=== PATIENT | female | born 1960 | race Caucasian/White ===

== ENCOUNTER 2019-12-12 03:29 | Inpatient (IN) | payer OTHER ==
[~2019-12-12] VITALS: Ht 160 cm; Wt 71.7 kg
[2019-12-12] VITALS (12 sets, daily range): BP systolic 70–203; BP diastolic 36–111
--- NOTE | 2019-12-12 03:39 | Emergency Room Report ---
History of Present Illness General Chief Complaint: Chest Pain Source: Patient, EMS Present Illness HPI 59-year-old female presents after increased chest discomfort. She reports having increased pain to the left side of her chest radiating to her back. Reports having prior history of hypertension for which she takes clonidine. Denies any vomiting or diarrhea. Prior history of nerve damage as well as anxiety. Reports having some increased dizziness. Patient had been brought in by EMS and had been given aspirin prior to arrival. Allergies: Coded Allergies: CIPROFLOXACIN (Verified Allergy, Unknown, 12/12/19) KETOROLAC (Verified Allergy, Unknown, 12/12/19) NSAIDS (NON-STEROIDAL ANTI-INFLAMMA (Verified Allergy, Unknown, 12/12/19) Patient History Past Medical History: see triage record Reviewed Nursing Documentation: PMH: Agreed; PSxH: Agreed Nursing Documentation-PMH Past Medical History: No History, Except For Hx Hypertension: Yes Review of Systems All Other Systems: negative except mentioned in HPI Physical Exam Vital Signs Date Time Temp Pulse Resp B/P (MAP) Pulse Ox O2 Delivery O2 Flow Rate FiO2 12/12/19 03:27 98.1 69 18 203/92 (129) 99 Room Air Sp02 EP Interpretation: reviewed, normal General Appearance: normal inspection, well appearing, no apparent distress, alert, GCS 15 Head: atraumatic ENT: normal ENT inspection, hearing grossly normal, normal voice Neck: normal inspection, full range of motion, supple, no bony tend Respiratory: normal inspection, lungs clear, normal breath sounds, no respiratory distress, no retraction, no wheezing Cardiovascular #1: regular rate, rhythm, no edema Gastrointestinal: normal inspection, normal bowel sounds, non tender, soft, no guarding, no hernia Genitourinary: no CVA tenderness Musculoskeletal: normal inspection, back normal, normal range of motion Neurologic: alert, motor strength/tone normal, office rep III-XII nml as tested, responsive, speech normal, normal inspection Psychiatric: normal inspection, judgement/insight normal, mood/affect normal Medical Decision Making Diagnostic Impression: Primary Impression: Uncontrolled hypertension Additional Impression: Chest pain ER Course Patient presented for chest pain and uncontrolled hypertension. Differential diagnosis include was not limited to medication withdrawal, aortic dissection, pulmonary embolism, myocardial infarction among others. Because of complexity of patient's case laboratory tests and imaging studies were ordered. EKG interpreted by me showed normal sinus rhythm without acute ST or T wave changes. Patient was noted to be initially markedly hypertensive. She was given clonidine. Patient was noted to have some agitation and was given some Ativan. She appears to be having some history of chronic low back pain for which he normally takes gabapentin but had been out of this medication. Dr. Dariusz Knox was contacted for inpatient management due to panel physician. Labs Test 12/12/19 04:00 12/12/19 06:00 12/12/19 18:00 White Blood Count 6.7 K/UL (4.8-10.8) Red Blood Count 5.57 M/UL (4.20-5.40) Hemoglobin 17.2 G/DL (12.0-16.0) Hematocrit 50.7 % (37.0-47.0) Mean Corpuscular Volume 91 FL (80-99) Mean Corpuscular Hemoglobin 30.9 PG (27.0-31.0) Mean Corpuscular Hemoglobin Concent 33.9 G/DL (32.0-36.0) Red Cell Distribution Width 14.3 % (11.6-14.8) Platelet Count 162 K/UL (150-450) Mean Platelet Volume 9.1 FL (6.5-10.1) Neutrophils (%) (Auto) 67.4 % (45.0-75.0) Lymphocytes (%) (Auto) 27.4 % (20.0-45.0) Monocytes (%) (Auto) 3.6 % (1.0-10.0) Eosinophils (%) (Auto) 0.6 % (0.0-3.0) Basophils (%) (Auto) 0.9 % (0.0-2.0) D-Dimer 0.40 mg/L FEU (0.00-0.49) Sodium Level 141 MMOL/L (136-145) Potassium Level 3.8 MMOL/L (3.5-5.1) Chloride Level 102 MMOL/L (98-107) Carbon Dioxide Level 26 MMOL/L (21-32) Anion Gap 13 mmol/L (5-15) Blood Urea Nitrogen 12 mg/dL (7-18) Creatinine 0.7 MG/DL (0.55-1.30) Estimat Glomerular Filtration Rate > 60 mL/min (>60) Glucose Level 134 MG/DL (74-106) Calcium Level 9.3 MG/DL (8.5-10.1) Total Bilirubin 0.7 MG/DL (0.2-1.0) Aspartate Amino Transf (AST/SGOT) 16 U/L (15-37) Alanine Aminotransferase (ALT/SGPT) 18 U/L (12-78) Alkaline Phosphatase 57 U/L (46-116) Pro-B-Type Natriuretic Peptide 226 pg/mL (0-125) Total Protein 7.4 G/DL (6.4-8.2) Albumin 3.6 G/DL (3.4-5.0) Globulin 3.8 g/dL Albumin/Globulin Ratio 0.9 (1.0-2.7) Lipase 34 U/L (73-393) Serum Alcohol < 3 mg/dL Urine Color Pale yellow Urine Appearance Clear Urine pH 6.5 (4.5-8.0) Urine Specific [place] 1.015 (1.005-1.035) Urine Protein Negative (NEGATIVE) Urine Glucose (UA) Negative (NEGATIVE) Urine Ketones 3+ (NEGATIVE) Urine Blood Negative (NEGATIVE) Urine Nitrite Negative (NEGATIVE) Urine Bilirubin Negative (NEGATIVE) Urine Urobilinogen Normal MG/DL (0.0-1.0) Urine Leukocyte Esterase Negative (NEGATIVE) Urine Opiates Screen Negative (NEGATIVE) Urine Barbiturates Screen Negative (NEGATIVE) Phencyclidine (PCP) Screen Negative (NEGATIVE) Urine Amphetamines Screen Negative (NEGATIVE) Urine Benzodiazepines Screen Negative (NEGATIVE) Urine Cocaine Screen Negative (NEGATIVE) Urine Marijuana (THC) Screen Negative (NEGATIVE) Troponin I 0.000 ng/mL (0.000-0.056) EKG Diagnostic Results Rate: normal Rhythm: NSR ST Segments: no acute changes Last Vital Signs Date Time Temp Pulse Resp B/P (MAP) Pulse Ox O2 Delivery O2 Flow Rate FiO2 12/12/19 03:27 98.1 69 18 203/92 (129) 99 Room Air Status: improved Disposition: ADMITTED INPATIENT Condition: Stable Jared Cuevas MD Dec 12, 2019 03:39
[2019-12-12] MEDS: Nitroglycerin 2% oint pkt TOPIC ONE ×2 (03:44→03:45)
--- NOTE | 2019-12-12 03:45 | NUR ---
ED Nurse Note: Pt brought in by ambulance from home c/o 04/26 chest pain that started at 10pm and woke her up out of her sleep, pain radiating to back. Denies N/V, pt appears anxious and states " i dont feel right, Im scared". Pt placed on field talent qualification specialist, ERMD at bedside
[2019-12-12 03:56] LABS: BASOPHILS % (AUTO) 0.9 % (0.0-2.0); EOSINOPHILS % (AUTO) 0.6 % (0.0-3.0); HEMATOCRIT 50.7 % (37.0-47.0); HEMOGLOBIN 17.2 G/DL (12.0-16.0); LYMPHOCYTES % (AUTO) 27.4 % (20.0-45.0); MEAN CORPUSCULAR VOLUME 91 FL (80-99); MONOCYTES % (AUTO) 3.6 % (1.0-10.0); NEUTROPHILS % (AUTO) 67.4 % (45.0-75.0); PLATELET COUNT 162 K/UL (150-450); RED BLOOD COUNT 5.57 M/UL (4.20-5.40); RED CELL DISTRIBUTION WIDTH 14.3 % (11.6-14.8); WHITE BLOOD COUNT 6.7 K/UL (4.8-10.8)
[2019-12-12] MEDS ORDERED: CYMBALTA60 MG ORAL (04:09)
[2019-12-12] MEDS ORDERED: SUBOXONE 8 MG-1 EAC2 SL (04:09)
[2019-12-12] MEDS ORDERED: CLONIDINE 0.2M0.2 MG PO (04:09)
[2019-12-12] MEDS ORDERED: GABAPENTIN600 MG ORAL (04:09)
[2019-12-12 04:13] LABS: ANION GAP 13 mmol/L (5-15); BLOOD UREA NITROGEN 12 mg/dL (7-18); CALCIUM 9.3 MG/DL (8.5-10.1); CARBON DIOXIDE 26 MMOL/L (21-32); CHLORIDE 102 MMOL/L (98-107); CREATININE 0.7 MG/DL (0.55-1.30); POTASSIUM 3.8 MMOL/L (3.5-5.1); SODIUM 141 MMOL/L (136-145)
[2019-12-12 04:24] LABS: ALANINE AMINOTRANSFERASE 18 U/L (12-78); ALBUMIN 3.6 G/DL (3.4-5.0); ALBUMIN/GLOBULIN RATIO 0.9 (1.0-2.7); ALKALINE PHOSPHATASE 57 U/L (46-116); ASPARTATE AMINO TRANSFERASE 16 U/L (15-37); BILIRUBIN,TOTAL 0.7 MG/DL (0.2-1.0)
[2019-12-12] MEDS ORDERED: Meclizine 25mg tab ORAL ONE (05:15)
[2019-12-12] MEDS ORDERED: cloNIDine 0.2mg Tab ORAL ONE (05:45)
--- NOTE | 2019-12-12 05:45 | NUR ---
ED Nurse Note: Pt accidentally pulled out her IV, iv reinserted in L forarm.
[2019-12-12] MEDS ORDERED: Omnipaque 350 100ml vial INJ PRN (06:00)
[2019-12-12] MEDS ORDERED: LORazepam Inj 2mg/ml 1ml IV ONE (06:15)
[2019-12-12 06:34] LABS: APPEARANCE,URINE CLEAR; BILIRUBIN, URINE NEGATIVE (NEGATIVE); COLOR,URINE PALE YELLOW; GLUCOSE, URINE (UA) NEGATIVE (NEGATIVE); KETONES,URINE 3+ (NEGATIVE); LEUKOCYTE ESTERASE ,URINE NEGATIVE (NEGATIVE); NITRITE,URINE NEGATIVE (NEGATIVE); PH,URINE 6.5 (4.5-8.0); PROTEIN,URINE NEGATIVE (NEGATIVE); UROBILINOGEN,URINE NORMAL MG/DL (0.0-1.0)
[2019-12-12] MEDS ORDERED: Nitroglycerin Subl 0.4mg tab SL PRN (07:00)
[2019-12-12] MEDS ORDERED: Miralax 17gm pkt ORAL PRN (07:00)
[2019-12-12] MEDS ORDERED: Enalaprilat 2.5mg/2ml Inj IV PRN (07:00)
[2019-12-12] MEDS ORDERED: Albuterol/Ipratropium 3ml neb HHN PRN (07:00)
[2019-12-12] MEDS ORDERED: Labetalol 5mg/ml 20ml vial IV PRN (07:00)
[2019-12-12] MEDS ORDERED: dilTIAZem HCl 25mg/5ml Inj IV PRN (07:00)
--- NOTE | 2019-12-12 07:03 | NUR ---
HAND-OFF: Report given to ARNOL Plunkett.
--- NOTE | 2019-12-12 07:11 | NUR ---
ED Nurse Note: Report received from ARNOL Almaguer. Pt in stable condition, sleeping in bed. No signs of acute distress noted.
--- NOTE | 2019-12-12 08:42 | NUR ---
ED Nurse Note: Pt refused CT d/t pain. 4 mg morphine administered and pt agreed to go to CT. Pt refusing monitor at this time because she "wants to lay still here for awhile."
[2019-12-12] MEDS ORDERED: Morphine Sulfate 4mg/ml Inj (IV USE ONLY) IVP ONE (08:45)
--- NOTE | 2019-12-12 09:14 | NUR ---
ED Nurse Note: Pt refused CT scan for the second time
--- NOTE | 2019-12-12 11:03 | NUR ---
ED Nurse Note: report given to ARNOL Walton in 2E
--- NOTE | 2019-12-12 11:12 | Diagnostic Imaging Report ---
Indication: Chest pain Comparison: None A single view chest radiograph was obtained. Findings: Some prominence of the pulmonary interstitium noted nonspecific in nature. Heart size is normal. No pleural effusion appreciated. Bones are unremarkable. IMPRESSION: Some prominence of the pulmonary interstitial nonspecific. Acuity indeterminant.
--- NOTE | 2019-12-12 11:20 | NUR ---
ED Nurse Note: Pt transferred safely to 2E
--- NOTE | 2019-12-12 11:30 | NUR ---
NURSE NOTES: Received report from Derrick Flores RN. Patient alert and oriented x 4, able to make needs known, uncooperative. NSR on skip locator. On room air, respirations even and unlabored. Left AC 20g saline lock patent and asymptomatic. SKin intact. Bed locked in lowest position with side rails up x 2. All needs attended to. Call light within reach. Will continue to monitor and follow plan of care.
--- NOTE | 2019-12-12 11:41 | NUR ---
NURSE NOTES: Dr. Mackey made aware of patient c/o back pain 05/27, no pain meds available. Patient also requesting Ativan for anxiety. CTA chest refused in ED x 2. Also made aware of patient's BP 183/111 upon arrival to floor, will give PRN meds.
[2019-12-12] MEDS: Heparin 5000 units/ml inj SUBQ SCH ×2 (11:56→20:35)
[2019-12-12] MEDS ORDERED: HYDROcodone/Acetamin 5/325 tab ORAL PRN (13:00)
[2019-12-12] MEDS: cloNIDine 0.2mg Tab ORAL SCH ×2 (13:00→17:43)
[2019-12-12] MEDS: LORazepam Inj 2mg/ml 1ml IV PRN ×2 (13:10→18:02)
--- NOTE | 2019-12-12 16:45 | History and Physical Report ---
DATE OF ADMISSION: 12/12/2019 DATE AND TIME SEEN: 12/12/2019 at 2 p.m. CONSULTANTS: 1. Vidal Walden M.D. 2. Froylan Mackey M.D. CHIEF COMPLAINT: Chest pain, hypertension uncontrolled, shortness of breath. BRIEF HISTORY: This is a 59-year-old female, who presented with above-mentioned diagnoses, admitted to telemetry for further care. Currently, in bed, sleepy lethargic refusing to answer questions. REVIEW OF SYSTEMS: Unavailable. PAST MEDICAL HISTORY: As mentioned, hypertension. PAST SURGICAL HISTORY: Unknown. ALLERGIES: Cipro, ketorolac, and NSAIDs. MEDICATIONS: Include clonidine, gabapentin, [place], lorazepam, pantoprazole, heparin, morphine, albuterol, nitroglycerin, Zofran, and temazepam. SOCIAL HISTORY: Unable to obtain secondary to the patient condition PHYSICAL EXAMINATION: GENERAL: Lethargic in bed, refusing to answer questions. VITAL SIGNS: Temperature 98 degrees, pulse 72, respirations 16, and blood pressure 161/80. CARDIOVASCULAR: No murmur. LUNGS: Poor air exchange. ABDOMEN: Bowel sounds distant. EXTREMITIES: No cyanosis, clubbing, edema, NEUROLOGIC: The patient is flaccid in bed, does not want to follow directions. LABORATORY AND DIAGNOSTIC DATA: Labs at this time show hemoglobin and hematocrit 17/50, otherwise CBC is normal. BMP show glucose 134. Troponin 0.004. BNP is 226. Lipase 34. Urinalysis, 3+ ketones. Urine tox is negative. ASSESSMENT: 1. Chest pain. 2. Hypertension, uncontrolled. 3. Shortness of breath. PLAN: 1. Blood pressure and pain control. 2. O2 and pulmonary treatment. 3. Dietary followup. 4. Resume home medications. 5. Cardiology and Pulmonary followup. 6. PT and dietary evaluation. 7. CBC and BMP in the morning. Dariusz Knox D.O. DR: NAYELI JOB#: [id number] CC:
--- NOTE | 2019-12-12 17:24 | NUR ---
NURSE NOTES: Dr. Walden at bedside to assess patient, updated on patient's status including elevated BP, pain and HR as low as 43. Troponin negative. EKG shows NSR.
--- NOTE | 2019-12-12 17:43 | Cardiology Progress Note ---
Assessment/Plan Assessment/Plan [id number] add palmavassoto refused cta reepeat trop echo and ekg normal will repat both Objective Last 24 Hour Vital Signs Date Time Temp Pulse Resp B/P (MAP) Pulse Ox O2 Delivery O2 Flow Rate FiO2 12/12/19 16:00 97.1 71 18 144/100 (115) 99 12/12/19 15:44 67 12/12/19 14:15 72 136/70 (92) 12/12/19 13:00 187/85 12/12/19 12:27 Room Air 12/12/19 12:00 97.5 66 20 183/111 (135) 98 12/12/19 11:52 183/111 12/12/19 11:37 66 12/12/19 05:45 98.1 72 16 161/80 99 Room Air 12/12/19 05:43 203/92 12/12/19 03:45 69 18 Room Air 12/12/19 03:45 161/92 12/12/19 03:45 98.1 69 18 203/92 99 Room Air 12/12/19 03:27 98.1 69 18 203/92 (129) 99 Room Air Laboratory Tests Test 12/12/19 04:00 12/12/19 06:00 White Blood Count 6.7 K/UL (4.8-10.8) Red Blood Count 5.57 M/UL (4.20-5.40) H Hemoglobin 17.2 G/DL (12.0-16.0) H Hematocrit 50.7 % (37.0-47.0) H Mean Corpuscular Volume 91 FL (80-99) Mean Corpuscular Hemoglobin 30.9 PG (27.0-31.0) Mean Corpuscular Hemoglobin Concent 33.9 G/DL (32.0-36.0) Red Cell Distribution Width 14.3 % (11.6-14.8) Platelet Count 162 K/UL (150-450) Mean Platelet Volume 9.1 FL (6.5-10.1) Neutrophils (%) (Auto) 67.4 % (45.0-75.0) Lymphocytes (%) (Auto) 27.4 % (20.0-45.0) Monocytes (%) (Auto) 3.6 % (1.0-10.0) Eosinophils (%) (Auto) 0.6 % (0.0-3.0) Basophils (%) (Auto) 0.9 % (0.0-2.0) D-Dimer 0.40 mg/L FEU (0.00-0.49) Sodium Level 141 MMOL/L (136-145) Potassium Level 3.8 MMOL/L (3.5-5.1) Chloride Level 102 MMOL/L (98-107) Carbon Dioxide Level 26 MMOL/L (21-32) Anion Gap 13 mmol/L (5-15) Blood Urea Nitrogen 12 mg/dL (7-18) Creatinine 0.7 MG/DL (0.55-1.30) Estimat Glomerular Filtration Rate > 60 mL/min (>60) Glucose Level 134 MG/DL (74-106) H Calcium Level 9.3 MG/DL (8.5-10.1) Total Bilirubin 0.7 MG/DL (0.2-1.0) Aspartate Amino Transf (AST/SGOT) 16 U/L (15-37) Alanine Aminotransferase (ALT/SGPT) 18 U/L (12-78) Alkaline Phosphatase 57 U/L (46-116) Troponin I 0.004 ng/mL (0.000-0.056) Pro-B-Type Natriuretic Peptide 226 pg/mL (0-125) H Total Protein 7.4 G/DL (6.4-8.2) Albumin 3.6 G/DL (3.4-5.0) Globulin 3.8 g/dL Albumin/Globulin Ratio 0.9 (1.0-2.7) L Lipase 34 U/L (73-393) L Serum Alcohol < 3 mg/dL Urine Color Pale yellow Urine Appearance Clear Urine pH 6.5 (4.5-8.0) Urine Specific [place] 1.015 (1.005-1.035) Urine Protein Negative (NEGATIVE) Urine Glucose (UA) Negative (NEGATIVE) Urine Ketones 3+ (NEGATIVE) H Urine Blood Negative (NEGATIVE) Urine Nitrite Negative (NEGATIVE) Urine Bilirubin Negative (NEGATIVE) Urine Urobilinogen Normal MG/DL (0.0-1.0) Urine Leukocyte Esterase Negative (NEGATIVE) Urine Opiates Screen Negative (NEGATIVE) Urine Barbiturates Screen Negative (NEGATIVE) Phencyclidine (PCP) Screen Negative (NEGATIVE) Urine Amphetamines Screen Negative (NEGATIVE) Urine Benzodiazepines Screen Negative (NEGATIVE) Urine Cocaine Screen Negative (NEGATIVE) Urine Marijuana (THC) Screen Negative (NEGATIVE) Vidal Walden MD Dec 12, 2019 17:43
[2019-12-12] MEDS ORDERED: Lisinopril 10mg tab ORAL PRN (17:45)
--- NOTE | 2019-12-12 19:15 | Consultation ---
DATE OF CONSULTATION: 12/12/2019 CARDIOLOGY CONSULTATION CONSULTING PHYSICIAN: Vidal Walden M.D. REFERRING PHYSICIAN: Dariusz Knox D.O. REASON FOR REFERRAL: Pain in the chest. HISTORY OF PRESENT ILLNESS: This is a middle-aged female with history of hypertension who says she ran out of her medications for blood pressure approximately 1 week ago. She is back in the hospital because of low back pain that she has had for years and she has also had some pain in the left side of her chest medial to the left breast. Pain apparently has been there for 3 days. Nothing that she has been able to identify relieve or exacerbates pain and she is really not able to provide any more details of the character and the type of pain that she is experiencing. She does not have any PND or orthopnea, although she uses multiple pillows because of gastroesophageal reflux disease. She has no heart pounding or palpitation. No dizziness or lightheadedness. PAST MEDICAL HISTORY: Positive for high blood pressure, depression. No prior history of heart attack. No cancer. No stroke. No diabetes. No kidney problems, liver problems, thyroid problems, anemia, arthritis, HIV, AIDS, or blood clots or any other issues. ALLERGIES: She states she is allergic to nonsteroidals including Advil and Motrin and Cipro and Ketoralac. SOCIAL HISTORY: Smokes 1 pack a day. Does not drink and does not use drugs. REVIEW OF SYSTEMS: GASTROINTESTINAL: She has had nausea, vomiting, reflux, diarrhea, constipation. GENITOURINARY: She denies. PULMONARY: She denies. CONSTITUTIONAL: She admits to having had fevers and chills. PHYSICAL EXAMINATION: GENERAL: Shows to be middle-aged female who appears somewhat agitated. NECK: Supple. No jugular venous distention. LUNGS: Clear to auscultation and percussion. CARDIAC: S1 is normal. S2 is normal. Regular rate and rhythm. No heaves, thrills, or gallops noted. ABDOMEN: Soft, nontender. Positive bowel sounds. EXTREMITIES: There is no clubbing, cyanosis, or edema. LABORATORY VALUES: The patient's telemetry shows sinus bradycardia. Echocardiogram shows ejection fraction of 60 to 65%, but that is a technically difficult study, mild mitral regurgitation, and no significant pericardial effusion. EKG is normal sinus rhythm, normal QRS axis, no ST-T wave abnormalities noted. Labs, her blood tests show white count 6.7, hemoglobin 17.2, and platelet count 162. Sodium is 141, potassium 3.8, chloride 102, bicarb 26, BUN 12, creatinine 0.7, glucose of 134, calcium is 9.3. ProBNP is only 226. Lipase is 34. Globulin 3.8. Coags INR 0.4. Drug screen was negative. Urinalysis is 3+ ketones. She indicates she has not been able to eat anything for the past few days because she did not have money. She had a chest x-ray shows some prominence of the pulmonary interstitial, nonspecific acute indeterminate. She was supposed to have a CT angio, but she unfortunately refused to have that done. ASSESSMENT AND PLAN: 1. Chest pain. 2. Hypertension. 3. Lower back pain. 4. Anxiety, depression. This patient was seen in cardiac consultation. The patient's echocardiogram was normal. First set of cardiac enzymes negative. Repeat cardiac enzymes will be performed today. The patient's blood pressure is poorly controlled despite clonidine. We will add some Norvasc. A CT angiogram was ordered for chest, abdomen, and pelvis, but the patient has refused to have that done. Therefore, the test has not been performed. Her proBNP is normal and I will repeat the cardiac enzymes and try to control heart rate with some combination of calcium channel blockers and as needed SASKIA inhibitors to better control. The patient may benefit from psych evaluation for depression and anxiety. Vidal Walden M.D. : JACKELIN JOB#: [id number] CC:
--- NOTE | 2019-12-12 19:27 | NUR ---
HAND-OFF: Report given to Reji Fernandes RN. VSS.
--- NOTE | 2019-12-12 19:30 | NUR ---
NURSE NOTES: Patient is asleep in bed. There are no signs of distress noted at the time. Bed placed in the lowest position. Transferred patient to room 212-1 because she didn't have a fall alarm bed. Left patient in room 212-1. Call light within reach, bed alarm on, and side rails up x3. Will continue plan of care.
--- NOTE | 2019-12-12 20:55 | NUR ---
NURSE NOTES: PATIENT'S BP79/46, HR72. PATIENT ASYMPTOMATIC. DR. CUNNINGHAM MADE AWARE, NEW ORDER RECEIVED.
--- NOTE | 2019-12-12 22:45 | NUR ---
NURSE NOTES: NS 500ML BOLUS GIVEN ORDERED, RECHECKED BP 78/46. DR. CUNNINGHAM MADE AWARE. ORDERED TO TRANSFER PATIENT TO ICU AND TO START LEVOPHED DRIP.
--- NOTE | 2019-12-12 23:00 | NUR ---
NURSE NOTES: received patient from telemetry due to hypotension, initially came to er due to chest pain, no chest pain at this time, verbally responsive but lethargic, oriented to name, reminded where she's at, and why she's being transferred to icu, somewhat anxious and restless and sleeps in between conversation, threat monitoring analyst shows sinus russell to rate of 55-58/min, bp 80/50, o2 2lnc on with o2 sat 96%, temp 97.7F, resp rate 15-16/min,nrmal saline bolus of 500 ml finishing up, iv site to left ac good,no swelling, no redness noted,wanting to eat, and use the bathroom, gave bedpan to urinate but unable to.
--- NOTE | 2019-12-12 23:20 | NUR ---
TRANSFER TO FLOOR: Patient transferred to ICU BED 246B, per hospital bed.PATIENT ALERT, SLEEPY. Report given to ARNOL VANEGAS. Belongings checked with BILLET BED OPERATOR and accounted for. Family and or S/O informed of transfer.
--- NOTE | 2019-12-12 23:30 | NUR ---
NURSE NOTES: dr. de la vega called for him to call dr villaseñor in er to request for central line for levophed drip
[2019-12-13] VITALS (26 sets, daily range): BP systolic 76–178; BP diastolic 41–91
--- NOTE | 2019-12-13 | NUR ---
NURSE NOTES: bp systolic fluctates from 70's to 80's and 90's, remains lethargic, able to give her daughters name(xochitl rodriguez) and phone number [phone], also remains bradycardic
--- NOTE | 2019-12-13 00:10 | NUR ---
NURSE NOTES: daughter called to notify her of the transfer from telemetry to icu, consent for central line insertion obtained
[2019-12-13] MEDS ORDERED: Lidocaine 1% Plain 30 ml INJ ONE ×2 (00:14→00:15)
--- NOTE | 2019-12-13 00:15 | NUR ---
NURSE NOTES: from er here to insert central line for levophed drip, he first assessed patient for reason for hypotension and reviewed meds given previously, aborted plan of central line insertion,levophed already mixed but not given due to no line access
[2019-12-13] MEDS ORDERED: Naloxone 0.4mg/ml Inj ONE (00:23)
[2019-12-13] MEDS ORDERED: Calcium Gluconate 1gm/10ml vial ONE (00:30)
--- NOTE | 2019-12-13 00:30 | NUR ---
NURSE NOTES: narcan 0.4mg ivp given per charleen faustin, patient more awake after and able to eat, hr up to 60's/min and bp 97/56
[2019-12-13] MEDS ORDERED: Naloxone 0.4mg/ml Inj IVP ONE (00:45)
--- NOTE | 2019-12-13 00:45 | NUR ---
HAND-OFF: Report given to annabella valdez.
--- NOTE | 2019-12-13 00:48 | NUR ---
NURSE NOTES: Pt report received from CLEMENTINA Vaughan RN. pt remains stable. pt is alert and oriented times 4, maria de jesus to follow commands. pt is on electric motor repair supervisor showing NSR, no distress noted. pt is on 2 L NC, able to sat at 99%. pt bed is low, locked, armed, call light within reach, bed rails up times 3. will follow plan of care. Addendum: 12/13/19 at 0148 by DANIELLE COBIAN RN NURSE NOTES: Pt report received from CLEMENTINA Vaughan RN. pt remains stable. pt is lethargic. pt is on electric motor repair supervisor showing SB 56. pt is on 2 L NC, able to sat at 99%. pt bed is low, locked, armed, call light within reach, bed rails up times 3. will follow plan of care.
[2019-12-13] MEDS ORDERED: Calcium Gluconate 1gm/10ml vial IVP SCH (01:30)
--- NOTE | 2019-12-13 01:30 | NUR ---
NURSE NOTES: Called MD CUNNINGHAM. stated PTs BP is 98/48, HR 48. stated MD RESENDZE from ER ordered calcium gluconate 1 G IVP. ordered 500 CC bolus. will continue to monitor.
--- NOTE | 2019-12-13 06:00 | NUR ---
NURSE NOTES: Pt stated NORCO does not do anything for her pain. messaged MD Mackey and requested another pain med.
[2019-12-13] MEDS: LORazepam Inj 2mg/ml 1ml IV PRN ×3 (06:23→15:58)
--- NOTE | 2019-12-13 07:00 | NUR ---
NURSE NOTES: MD Mackey messaged back, ordered Morphine 2 MG IV Q 4 PRN. pt remains stable.
--- NOTE | 2019-12-13 07:24 | NUR ---
HAND-OFF: Report given to SABRINA AMBROSE. Pt remains stable.
[2019-12-13] MEDS ORDERED: Morphine Sulfate 2mg/ml Inj(IV/IM USE ONLY) IVP PRN (07:30)
[2019-12-13] MEDS ORDERED: HYDROcodone/Acetamin 5/325 tab ORAL PRN (08:00)
[2019-12-13] MEDS: Morphine Sulfate 2mg/ml Inj(IV/IM USE ONLY) IVP PRN ×4 (08:28→22:42)
--- NOTE | 2019-12-13 08:33 | Consultation ---
History of Present Illness General Date patient seen: Dec 13, 2019 Time patient seen: 07:45 - am Chief Complaint: Low back pain Referring physician: Narendra Reason for Consultation: Pain Management Present Illness HPI Patient is a 59 y/o female who was admitted under the care of Dr. Francisco due to chest pain and hypertension and has been seen by Bracer. She has been c/o chronic lower back pain and reports she had been on high amounts of Oxycodone 30mg due to the pain and was started on Suboxone 8mg twice a day by Dr. Hammer , however [facility] does not have buprenorphine on formulary at this time and was started on [place] 5/325mg PO 1 tab Q6H PRN and Morphine 2mg IV Q4H PRN. At this time I asked patient if she is able to bring in her Suboxone from home and she will try to have this done and at this time will be continued on the Morphine and Free[place]. We were consulted so patient will have adequate pain control while here in the hospital Allergies: Coded Allergies: CIPROFLOXACIN (Verified Allergy, Unknown, 12/12/19) KETOROLAC (Verified Allergy, Unknown, 12/12/19) NSAIDS (NON-STEROIDAL ANTI-INFLAMMA (Verified Allergy, Unknown, 12/12/19) Medication History Scheduled Buprenorphine Hcl/Naloxone Hcl (Suboxone 8 Mg-2 Mg Tablet Sl*), 1 TAB SL DAILY, (Reported) Clonidine HCl (Clonidine HCl), 0.2 MG PO THREE TIMES A DAY, (Reported) Duloxetine Hcl* (Cymbalta*), Unknown Dose ORAL DAILY, (Reported) Gabapentin* (Gabapentin*), 600 MG ORAL THREE TIMES A DAY, (Reported) Patient History Healthcare decision maker Resuscitation status Full Code Advanced Directive on File Past Medical/Surgical History Past Medical/Surgical History: (1) History of hypertension (2) Hysterical personality disorder (3) Chronic back pain (4) Uncontrolled hypertension Review of Systems Constitutional: Reports: no symptoms Eye: Reports: no symptoms ENT: Reports: no symptoms Respiratory: Reports: no symptoms Cardiovascular: Reports: no symptoms Gastrointestinal: Reports: no symptoms Genitourinary: Reports: no symptoms Musculoskeletal: Reports: back pain Skin: Reports: no symptoms Psychiatric: Reports: no symptoms Neurological: Reports: no symptoms Endocrine: Reports: no symptoms Hematologic/Lymphatic: Reports: no symptoms Physical Exam General Appearance: no apparent distress, alert HEENT: PERRL Neck: non-tender, supple Respiratory/Chest: lungs clear, normal breath sounds Cardiovascular/Chest: normal rate, regular rhythm Abdomen: non tender, soft Extremities: non-tender, normal inspection Skin Exam: warm/dry Neurologic: alert, oriented x 3 Last 24 Hour Vital Signs Date Time Temp Pulse Resp B/P (MAP) Pulse Ox O2 Delivery O2 Flow Rate FiO2 12/13/19 07:12 98 Nasal Cannula 2.0 28 12/13/19 07:00 63 18 125/58 (80) 99 12/13/19 06:00 79 18 133/81 (98) 98 12/13/19 05:00 62 18 100/54 (69) 99 12/13/19 04:00 51 12/13/19 04:00 98.3 48 18 108/52 (70) 99 12/13/19 04:00 Nasal Cannula 2.0 12/13/19 03:00 56 18 96/54 (68) 99 12/13/19 02:00 44 18 93/47 (62) 98 12/13/19 01:00 52 17 76/41 (53) 98 12/13/19 00:30 50 16 97/56 (70) 97 12/13/19 00:15 50 16 83/53 (63) 97 12/13/19 00:00 58 12/13/19 00:00 97.9 54 15 101/49 (66) 95 12/12/19 23:45 80/50 12/12/19 23:45 52 14 81/45 (57) 92 12/12/19 23:30 52 14 70/40 (50) 92 12/12/19 23:15 52 16 80/36 (51) 95 12/12/19 23:00 55 12/12/19 23:00 97.7 55 15 80/50 (60) 96 12/12/19 23:00 Nasal Cannula 2.0 12/12/19 22:42 78/46 (57) 12/12/19 22:00 53 84/45 (58) 12/12/19 21:00 Nasal Cannula 2.0 12/12/19 20:00 61 12/12/19 20:00 96.3 72 17 90/53 (65) 94 12/12/19 18:02 88 139/67 12/12/19 17:43 139/67 12/12/19 16:00 97.1 71 18 144/100 (115) 99 12/12/19 15:44 67 12/12/19 14:15 72 136/70 (92) 12/12/19 13:00 187/85 12/12/19 12:27 Room Air 12/12/19 12:00 97.5 66 20 183/111 (135) 98 12/12/19 11:52 183/111 12/12/19 11:37 66 12/12/19 11:20 98.0 75 16 168/82 99 Room Air Intake and Output 12/12/19 12/13/19 19:00 07:00 Intake Total 1240 ml Balance 1240 ml Intake Oral 240 ml IV Total 1000 ml Laboratory Tests Test 12/12/19 18:00 Troponin I 0.000 ng/mL (0.000-0.056) Height (Feet): 5 Height (Inches): 3.00 Weight (Pounds): 122 Medications Current Medications Medications (Trade) Dose Ordered Sig/Maureen Route PRN Reason Start Time Stop Time Status Last Admin Dose Admin Acetaminophen (Tylenol) 650 mg Q4H PRN ORAL FEVER 12/12/19 07:00 01/11/20 06:59 Acetaminophen/ Hydrocodone Bitart ([place] 5/325) 1 tab Q6H PRN ORAL Moderate Pain (Pain Scale 4-6) 12/13/19 08:00 12/19/19 07:59 Albuterol/ Ipratropium (Albuterol/ Ipratropium) 3 ml Q4H PRN HHN Shortness of Breath 12/12/19 07:00 12/17/19 06:59 Amlodipine Besylate (Norvasc) 5 mg DAILY ORAL 12/12/19 18:00 01/11/20 17:59 12/12/19 18:02 Clonidine HCl (Catapres tab) 0.2 mg THREE TIMES A DAY ORAL 12/12/19 13:00 01/11/20 12:59 12/12/19 17:43 Diltiazem HCl (Cardizem) 10 mg Q1H PRN IV heart rate more than 120, 12/12/19 07:00 01/11/20 06:59 Enalaprilat (Vasotec) 2.5 mg Q6H PRN IV sbp more than 160 12/12/19 07:00 01/11/20 06:59 12/12/19 11:52 Gabapentin (Neurontin) 600 mg THREE TIMES A DAY ORAL 12/12/19 13:00 01/11/20 12:59 12/12/19 17:42 Heparin Sodium (Porcine) (Heparin 5000 units/ml) 5,000 units EVERY 12 HOURS SUBQ 12/12/19 10:51 01/11/20 10:50 12/12/19 20:35 Iohexol (Omnipaque 350 100ml) 100 ml NOW PRN INJ Radiology Procedure 12/12/19 06:00 12/14/19 05:49 Labetalol HCl (Normodyne) 20 mg Q1H PRN IV sbp more than 160 12/12/19 07:00 01/11/20 06:59 Lisinopril (ZestriL) 10 mg BID PRN ORAL HTN (see dose instructions) 12/12/19 17:45 01/11/20 17:44 Lorazepam (Ativan 2mg/ml 1ml) 0.5 mg Q4H PRN IV For Anxiety 12/12/19 13:00 12/19/19 12:59 12/13/19 06:23 Morphine Sulfate (Morphine Sulfate) 2 mg Q4H PRN IVP Severe Pain (Pain Scale 7-10) 12/13/19 08:00 12/20/19 07:59 12/13/19 08:28 Nitroglycerin (Ntg) 0.4 mg Q5M PRN SL Prn Chest Pain 12/12/19 07:00 01/11/20 06:59 Norepinephrine Bitartrate 4 mg/ Dextrose 250 ml @ 0 mls/hr Q24H IV 12/12/19 23:45 01/11/20 23:44 Ondansetron HCl (Zofran) 4 mg Q6H PRN IVP Nausea & Vomiting 12/12/19 07:00 01/11/20 06:59 12/12/19 12:55 Pantoprazole (Protonix) 40 mg DAILY ORAL 12/12/19 10:51 01/11/20 10:50 12/12/19 11:55 Polyethylene Glycol (Miralax) 17 gm DAILYPRN PRN ORAL Constipation 12/12/19 07:00 01/11/20 06:59 Sodium Chloride 1,000 ml @ 125 mls/hr Q8H IV 12/13/19 02:00 01/12/20 01:59 12/13/19 02:05 Temazepam (Restoril) 15 mg HSPRN PRN ORAL Insomnia 12/12/19 07:00 12/19/19 06:59 Assessment/Plan Assessment/Plan: (1) Opioid Dependency (2) Anxiety/Depression (3) Lumbar DDD (4) Lumbar Spondylosis Patient will be continued on Free[place] and Morphine we will start patient Robaxin 500mg PO 1 tab Q8H PRN muscle spasm. D/w Dr. Alexis and he concurred Thank you for consult. Mihai Hooker Dec 13, 2019 08:33
--- NOTE | 2019-12-13 08:45 | NUR ---
NURSE NOTES: Dr. Knowles assessed patient at the bedside, assessed medication reconciliation with patient and ordered to have medication stay as is, recommended to have consultation for psych.
[2019-12-13] MEDS ORDERED: Methocarbamol 500mg tab ORAL PRN (09:00)
[2019-12-13] MEDS: Heparin 5000 units/ml inj SUBQ SCH ×2 (09:00→20:29)
--- NOTE | 2019-12-13 09:10 | NUR ---
NURSE NOTES: Patient able to use bedside commode with assistance from RN. bed linen changed and patient placed back to bed with no difficulty, patient remains on nasal cannula at 2L/min.
[2019-12-13 09:17] LABS: BASOPHILS % (AUTO) 0.7 % (0.0-2.0); EOSINOPHILS % (AUTO) 0.4 % (0.0-3.0); HEMATOCRIT 42.8 % (37.0-47.0); HEMOGLOBIN 14.3 G/DL (12.0-16.0); LYMPHOCYTES % (AUTO) 29.6 % (20.0-45.0); MEAN CORPUSCULAR VOLUME 92 FL (80-99); MONOCYTES % (AUTO) 4.1 % (1.0-10.0); NEUTROPHILS % (AUTO) 65.3 % (45.0-75.0); PLATELET COUNT 159 K/UL (150-450); RED BLOOD COUNT 4.67 M/UL (4.20-5.40); RED CELL DISTRIBUTION WIDTH 13.5 % (11.6-14.8); WHITE BLOOD COUNT 7.8 K/UL (4.8-10.8)
[2019-12-13 09:21] LABS: INR 0.9 (0.9-1.1)
--- NOTE | 2019-12-13 09:30 | NUR ---
NURSE NOTES: Dr. Knox assessed patient at the bedside, made aware of patient chronic back pain, ordered to have a consult for Dr. Moya.
[2019-12-13 09:31] LABS: ANION GAP 9 mmol/L (5-15); BLOOD UREA NITROGEN 17 mg/dL (7-18); CALCIUM 8.7 MG/DL (8.5-10.1); CARBON DIOXIDE 30 MMOL/L (21-32); CHLORIDE 107 MMOL/L (98-107); CREATININE 0.8 MG/DL (0.55-1.30); POTASSIUM 4.3 MMOL/L (3.5-5.1); SODIUM 145 MMOL/L (136-145)
[2019-12-13 09:49] LABS: CHOLESTEROL 217 MG/DL (< 200); HDL CHOLESTEROL 35 MG/DL (40-60); TRIGLYCERIDES 370 MG/DL (30-150)
--- NOTE | 2019-12-13 09:57 | General Progress Note ---
Assessment/Plan Problem List: (1) SOB (shortness of breath) ICD Codes: R06.02 - Shortness of breath SNOMED: 005979513 (2) Chest pain ICD Codes: R07.9 - Chest pain, unspecified SNOMED: 70118217 (3) Uncontrolled hypertension ICD Codes: I10 - Essential (primary) hypertension SNOMED: 15873865, 69432054 Status: unchanged Assessment/Plan: o2 pulm tx bp control pt diet cardio f/u cbc bmp am Subjective Allergies: Coded Allergies: CIPROFLOXACIN (Verified Allergy, Unknown, 12/12/19) KETOROLAC (Verified Allergy, Unknown, 12/12/19) NSAIDS (NON-STEROIDAL ANTI-INFLAMMA (Verified Allergy, Unknown, 12/12/19) All Systems: reviewed and negative except above Subjective o2nc calm in icu Objective Last 24 Hour Vital Signs Date Time Temp Pulse Resp B/P (MAP) Pulse Ox O2 Delivery O2 Flow Rate FiO2 12/13/19 09:00 64 14 138/52 (80) 99 12/13/19 08:00 98.4 65 17 143/65 (91) 100 12/13/19 08:00 Nasal Cannula 2.0 12/13/19 07:12 98 Nasal Cannula 2.0 28 12/13/19 07:00 63 18 125/58 (80) 99 12/13/19 06:00 79 18 133/81 (98) 98 12/13/19 05:00 62 18 100/54 (69) 99 12/13/19 04:00 51 12/13/19 04:00 98.3 48 18 108/52 (70) 99 12/13/19 04:00 Nasal Cannula 2.0 12/13/19 03:00 56 18 96/54 (68) 99 12/13/19 02:00 44 18 93/47 (62) 98 12/13/19 01:00 52 17 76/41 (53) 98 12/13/19 00:30 50 16 97/56 (70) 97 12/13/19 00:15 50 16 83/53 (63) 97 12/13/19 00:00 58 12/13/19 00:00 97.9 54 15 101/49 (66) 95 12/12/19 23:45 80/50 12/12/19 23:45 52 14 81/45 (57) 92 12/12/19 23:30 52 14 70/40 (50) 92 12/12/19 23:15 52 16 80/36 (51) 95 12/12/19 23:00 55 12/12/19 23:00 97.7 55 15 80/50 (60) 96 12/12/19 23:00 Nasal Cannula 2.0 12/12/19 22:42 78/46 (57) 12/12/19 22:00 53 84/45 (58) 12/12/19 21:00 Nasal Cannula 2.0 12/12/19 20:00 61 12/12/19 20:00 96.3 72 17 90/53 (65) 94 12/12/19 18:02 88 139/67 12/12/19 17:43 139/67 12/12/19 16:00 97.1 71 18 144/100 (115) 99 12/12/19 15:44 67 12/12/19 14:15 72 136/70 (92) 12/12/19 13:00 187/85 12/12/19 12:27 Room Air 12/12/19 12:00 97.5 66 20 183/111 (135) 98 12/12/19 11:52 183/111 12/12/19 11:37 66 12/12/19 11:20 98.0 75 16 168/82 99 Room Air Intake and Output 12/12/19 12/13/19 19:00 07:00 Intake Total 1240 ml Balance 1240 ml Intake Oral 240 ml IV Total 1000 ml Laboratory Tests 12/12/19 18:00: Troponin I 0.000 12/13/19 08:30: Troponin I 0.012, White Blood Count 7.8, Red Blood Count 4.67, Hemoglobin 14.3, Hematocrit 42.8, Mean Corpuscular Volume 92, Mean Corpuscular Hemoglobin 30.7, Mean Corpuscular Hemoglobin Concent 33.4, Red Cell Distribution Width 13.5, Platelet Count 159, Mean Platelet Volume 7.3, Neutrophils (%) (Auto) 65.3, Lymphocytes (%) (Auto) 29.6, Monocytes (%) (Auto) 4.1, Eosinophils (%) (Auto) 0.4, Basophils (%) (Auto) 0.7, Prothrombin Time 10.0, Prothromb Time International Ratio 0.9, Activated Partial Thromboplast Time 29, Sodium Level 145, Potassium Level 4.3, Chloride Level 107, Carbon Dioxide Level 30, Anion Gap 9, Blood Urea Nitrogen 17, Creatinine 0.8, Estimat Glomerular Filtration Rate > 60, Glucose Level 161H, Calcium Level 8.7, C-Reactive Protein, Quantitative < 0.4, Triglycerides Level 370H, Cholesterol Level 217H, LDL Cholesterol 120H, HDL Cholesterol 35L, Cholesterol/HDL Ratio 6.2H, Thyroid Stimulating Hormone (TSH) 1.422 Height (Feet): 5 Height (Inches): 3.00 Weight (Pounds): 122 General Appearance: lethargic EENT: normal ENT inspection Neck: normal alignment Cardiovascular: normal peripheral pulses, normal rate, regular rhythm Respiratory/Chest: chest wall non-tender, lungs clear, normal breath sounds Abdomen: normal bowel sounds, non tender, soft Extremities: normal inspection Edema: no edema noted Arm (L), no edema noted Arm (R), no edema noted Leg (L), no edema noted Leg (R), no edema noted Pedal (L), no edema noted Pedal (R), no edema noted Generalized Neurologic: responsive, motor weakness Skin: normal pigmentation, warm/dry Dariusz Knox DO Dec 13, 2019 09:57
[2019-12-13] MEDS: cloNIDine 0.2mg Tab ORAL SCH ×3 (10:11→17:25)
--- NOTE | 2019-12-13 10:15 | NUR ---
NURSE NOTES: Dr. Mackey notified of patient condition in the ICU, no verbal orders given at this time. she is currently talkative and is able to communicate with no distress, remain son Nasal Cannula at 2L/min saturating at 97-99%. patient is able to tolerate diet orders eating 100% of meal
--- NOTE | 2019-12-13 10:17 | Pulmonolgy Critical Care Note ---
Critical Care - Asmt/Plan Problems: (1) Uncontrolled hypertension (2) Chronic back pain (3) History of hypertension (4) Hysterical personality disorder Respiratory: monitor respiratory rate, adjust FIO2 Cardiac: continue to monitor HR/BP Renal: F/U I&O, check electrolytes Gastrointestinal: continue feedings/current rate Hematologic: monitor H/H, transfuse if hgb<8.5 Neurologic: PRN Ativan, PRN Morphine, keep patient comfortable Notes Reviewed: rattan worker, cardio Critical Care - Objective Last 24 Hour Vital Signs Date Time Temp Pulse Resp B/P (MAP) Pulse Ox O2 Delivery O2 Flow Rate FiO2 12/13/19 10:11 75 153/91 12/13/19 10:11 153/91 12/13/19 09:00 64 14 138/52 (80) 99 12/13/19 08:00 98.4 65 17 143/65 (91) 100 12/13/19 08:00 Nasal Cannula 2.0 12/13/19 07:12 98 Nasal Cannula 2.0 28 12/13/19 07:00 63 18 125/58 (80) 99 12/13/19 06:00 79 18 133/81 (98) 98 12/13/19 05:00 62 18 100/54 (69) 99 12/13/19 04:00 51 12/13/19 04:00 98.3 48 18 108/52 (70) 99 12/13/19 04:00 Nasal Cannula 2.0 12/13/19 03:00 56 18 96/54 (68) 99 12/13/19 02:00 44 18 93/47 (62) 98 12/13/19 01:00 52 17 76/41 (53) 98 12/13/19 00:30 50 16 97/56 (70) 97 12/13/19 00:15 50 16 83/53 (63) 97 12/13/19 00:00 58 12/13/19 00:00 97.9 54 15 101/49 (66) 95 12/12/19 23:45 80/50 12/12/19 23:45 52 14 81/45 (57) 92 12/12/19 23:30 52 14 70/40 (50) 92 12/12/19 23:15 52 16 80/36 (51) 95 12/12/19 23:00 55 12/12/19 23:00 97.7 55 15 80/50 (60) 96 12/12/19 23:00 Nasal Cannula 2.0 12/12/19 22:42 78/46 (57) 12/12/19 22:00 53 84/45 (58) 12/12/19 21:00 Nasal Cannula 2.0 12/12/19 20:00 61 12/12/19 20:00 96.3 72 17 90/53 (65) 94 12/12/19 18:02 88 139/67 12/12/19 17:43 139/67 12/12/19 16:00 97.1 71 18 144/100 (115) 99 12/12/19 15:44 67 12/12/19 14:15 72 136/70 (92) 12/12/19 13:00 187/85 12/12/19 12:27 Room Air 12/12/19 12:00 97.5 66 20 183/111 (135) 98 12/12/19 11:52 183/111 12/12/19 11:37 66 12/12/19 11:20 98.0 75 16 168/82 99 Room Air Status: awake Condition: improving HEENT: atraumatic Neck: full ROM Heart: HR/BP stable Abdomen: soft, active bowel sounds Extremities: no C/C/E Critical Care - Subjective ROS Limited/Unobtainable: No Interval Events: pt was admitted to telemetry with SBP of 220, subsequently pts bp dropped and she was transferred to ICU. Currently she is awake and crying since her cat is by himself at her apartment. Condition: improving FI02: 28 I&O: Intake and Output 12/12/19 12/13/19 19:00 07:00 Intake Total 1240 ml Balance 1240 ml Intake Oral 240 ml IV Total 1000 ml CXR: some increased interstitial marking Labs: Laboratory Tests Test 12/12/19 18:00 12/13/19 08:30 Troponin I 0.000 ng/mL (0.000-0.056) 0.012 ng/mL (0.000-0.056) White Blood Count 7.8 K/UL (4.8-10.8) Red Blood Count 4.67 M/UL (4.20-5.40) Hemoglobin 14.3 G/DL (12.0-16.0) Hematocrit 42.8 % (37.0-47.0) Mean Corpuscular Volume 92 FL (80-99) Mean Corpuscular Hemoglobin 30.7 PG (27.0-31.0) Mean Corpuscular Hemoglobin Concent 33.4 G/DL (32.0-36.0) Red Cell Distribution Width 13.5 % (11.6-14.8) Platelet Count 159 K/UL (150-450) Mean Platelet Volume 7.3 FL (6.5-10.1) Neutrophils (%) (Auto) 65.3 % (45.0-75.0) Lymphocytes (%) (Auto) 29.6 % (20.0-45.0) Monocytes (%) (Auto) 4.1 % (1.0-10.0) Eosinophils (%) (Auto) 0.4 % (0.0-3.0) Basophils (%) (Auto) 0.7 % (0.0-2.0) Prothrombin Time 10.0 SEC (9.30-11.50) Prothromb Time International Ratio 0.9 (0.9-1.1) Activated Partial Thromboplast Time 29 SEC (23-33) Sodium Level 145 MMOL/L (136-145) Potassium Level 4.3 MMOL/L (3.5-5.1) Chloride Level 107 MMOL/L (98-107) Carbon Dioxide Level 30 MMOL/L (21-32) Anion Gap 9 mmol/L (5-15) Blood Urea Nitrogen 17 mg/dL (7-18) Creatinine 0.8 MG/DL (0.55-1.30) Estimat Glomerular Filtration Rate > 60 mL/min (>60) Glucose Level 161 MG/DL (74-106) H Calcium Level 8.7 MG/DL (8.5-10.1) C-Reactive Protein, Quantitative < 0.4 mg/dL (0.00-0.90) Triglycerides Level 370 MG/DL (30-150) H Cholesterol Level 217 MG/DL (< 200) H LDL Cholesterol 120 mg/dL (<100) H HDL Cholesterol 35 MG/DL (40-60) L Cholesterol/HDL Ratio 6.2 (3.3-4.4) H Thyroid Stimulating Hormone (TSH) 1.422 uiU/mL (0.358-3.740) Froylan Mackey MD Dec 13, 2019 10:17
--- NOTE | 2019-12-13 12:20 | NUR ---
NURSE NOTES: patient tolerating diet and completely eat 100% of meal, remains on nasal cannula at 2L/min saturating at 94-98%.
--- NOTE | 2019-12-13 13:38 | CDS Physician Query ---
Clarification is required for compliance, coding accuracy, and to reflect severity of illness for this patient Dear Dr. Dariusz Knox Date: 12/13/2019 [employer] Builder [employer]r/CDS Name: Daphnie Weaver Clinical Documentation states: CHIEF COMPLAINT: Chest pain, hypertension uncontrolled, shortness of breath... 59-year-old female, who presented with above-mentioned diagnoses, admitted to telemetry for further care...Hypertension , uncontrolled Blood Pressure on admission day 12/12: 203/92 Treatment: IV labetalol, diltiazem, enalaprilat; oral clonidine, lisinopril, amlodipine Please Clarify the specific type of hypertension: [] Hypertensive Emergency (Severe HTN with impending or progressive organ dysfunction) [] Hypertensive Urgency (Severe HTN without impending or progressive organ dysfunction) [] Essential Hypertension, Unspecified [] Other: Present on Admission: [] Yes [] No [] Clinically Undetermined Physician signature Date Please also document in your Progress Notes and/or Discharge Summary and indicate if the condition was present on admission. MAYITOD
--- NOTE | 2019-12-13 14:20 | NUR ---
NURSE NOTES: Daughter at the bedside with patient, updated on patient condition, patient remains calm and resting in bed.
--- NOTE | 2019-12-13 15:35 | NUR ---
SILVERWARE ETCHER NOTE PT has admitted to ICU on 12/12/2019. Pt presents as A&O4x. Pt's daughter Dagmar Meyer) [phone] was at pt's bed side. Pt resides w/ her daughter Dagmar at [address] [place] [address]. Pt is currently unemployed, and has two adult daughters. Pt does not have POA/AD but expressing full code. Pt requested information on SSDI. CATHERINE explained the process and provided the resource. Pt's daughter states she will assist w/ such application. PT did not share any other concern/needs at this time. Signed: 12/13/19 at 1553 by KARI ALEXANDER <Co-Signature Required>
--- NOTE | 2019-12-13 15:49 | NUR ---
NURSE NOTES: Dr. Moya assessed patient at the bedside, ordered to given Seroquel po at bedtime to aid with sleep.
--- NOTE | 2019-12-13 16:40 | NUR ---
*-* INSURANCE *-* ALL AVAILABLE CLINICALS HAVE BEEN FAXED TO: MELISSA Roberts CM: Yeimy Fax Clinicals: [phone]
--- NOTE | 2019-12-13 19:34 | NUR ---
HAND-OFF: Report given to ARNOL Mitchell. Patient remains on bed with no distress noted, endorsed transfer order to SDU.
--- NOTE | 2019-12-13 20:00 | NUR ---
NURSE NOTES: received in no distress,monitoring tech shows sinus russell with hr on the 50's /min, bp 144/71, on o2 2Lnc with o2 sat 96-98%, no complaints of pain at this time, awake and alert x4, iv sites to right forearm and left ac good, no swelling no redness noted with iv fluid of NS at 125ml/hr, plan of care explained, reminded to call for a nurse when she needs something, call light within reach, fall precaution observed, bed low and locked zone 1 alarm on, side rails x3 up,fall precaution sign at the door and staff alerted that the patient is high fall risk
--- NOTE | 2019-12-13 20:16 | Cardiology Progress Note ---
Assessment/Plan Assessment/Plan [id number] Objective Last 24 Hour Vital Signs Date Time Temp Pulse Resp B/P (MAP) Pulse Ox O2 Delivery O2 Flow Rate FiO2 12/13/19 19:00 52 18 139/70 (93) 99 12/13/19 18:00 71 17 178/76 (110) 99 12/13/19 17:25 148/58 12/13/19 17:00 64 17 152/70 (97) 96 12/13/19 16:00 79 12/13/19 16:00 97.9 77 23 141/72 (95) 99 12/13/19 15:00 82 16 167/75 (105) 98 12/13/19 15:00 Nasal Cannula 2.0 12/13/19 14:00 77 15 157/76 (103) 99 12/13/19 13:48 180/84 12/13/19 13:00 59 15 153/67 (95) 94 12/13/19 12:00 97.8 59 18 138/62 (87) 93 12/13/19 12:00 70 12/13/19 11:00 67 16 143/71 (95) 100 12/13/19 10:11 75 153/91 12/13/19 10:11 153/91 12/13/19 10:00 78 26 153/91 (111) 97 12/13/19 10:00 78 12/13/19 09:00 64 14 138/52 (80) 99 12/13/19 08:00 98.4 65 17 143/65 (91) 100 12/13/19 08:00 78 12/13/19 08:00 Nasal Cannula 2.0 12/13/19 07:12 98 Nasal Cannula 2.0 28 12/13/19 07:00 63 18 125/58 (80) 99 12/13/19 06:00 79 18 133/81 (98) 98 12/13/19 05:00 62 18 100/54 (69) 99 12/13/19 04:00 51 12/13/19 04:00 98.3 48 18 108/52 (70) 99 12/13/19 04:00 Nasal Cannula 2.0 12/13/19 03:00 56 18 96/54 (68) 99 12/13/19 02:00 44 18 93/47 (62) 98 12/13/19 01:00 52 17 76/41 (53) 98 12/13/19 00:30 50 16 97/56 (70) 97 12/13/19 00:15 50 16 83/53 (63) 97 12/13/19 00:00 58 12/13/19 00:00 97.9 54 15 101/49 (66) 95 12/12/19 23:45 80/50 12/12/19 23:45 52 14 81/45 (57) 92 12/12/19 23:30 52 14 70/40 (50) 92 12/12/19 23:15 52 16 80/36 (51) 95 12/12/19 23:00 55 12/12/19 23:00 97.7 55 15 80/50 (60) 96 12/12/19 23:00 Nasal Cannula 2.0 12/12/19 22:42 78/46 (57) 12/12/19 22:00 53 84/45 (58) 12/12/19 21:00 Nasal Cannula 2.0 Intake and Output 12/12/19 12/13/19 19:00 07:00 Intake Total 1240 ml Balance 1240 ml Intake Oral 240 ml IV Total 1000 ml Laboratory Tests Test 12/13/19 08:30 White Blood Count 7.8 K/UL (4.8-10.8) Red Blood Count 4.67 M/UL (4.20-5.40) Hemoglobin 14.3 G/DL (12.0-16.0) Hematocrit 42.8 % (37.0-47.0) Mean Corpuscular Volume 92 FL (80-99) Mean Corpuscular Hemoglobin 30.7 PG (27.0-31.0) Mean Corpuscular Hemoglobin Concent 33.4 G/DL (32.0-36.0) Red Cell Distribution Width 13.5 % (11.6-14.8) Platelet Count 159 K/UL (150-450) Mean Platelet Volume 7.3 FL (6.5-10.1) Neutrophils (%) (Auto) 65.3 % (45.0-75.0) Lymphocytes (%) (Auto) 29.6 % (20.0-45.0) Monocytes (%) (Auto) 4.1 % (1.0-10.0) Eosinophils (%) (Auto) 0.4 % (0.0-3.0) Basophils (%) (Auto) 0.7 % (0.0-2.0) Prothrombin Time 10.0 SEC (9.30-11.50) Prothromb Time International Ratio 0.9 (0.9-1.1) Activated Partial Thromboplast Time 29 SEC (23-33) Sodium Level 145 MMOL/L (136-145) Potassium Level 4.3 MMOL/L (3.5-5.1) Chloride Level 107 MMOL/L (98-107) Carbon Dioxide Level 30 MMOL/L (21-32) Anion Gap 9 mmol/L (5-15) Blood Urea Nitrogen 17 mg/dL (7-18) Creatinine 0.8 MG/DL (0.55-1.30) Estimat Glomerular Filtration Rate > 60 mL/min (>60) Glucose Level 161 MG/DL (74-106) H Calcium Level 8.7 MG/DL (8.5-10.1) Troponin I 0.012 ng/mL (0.000-0.056) C-Reactive Protein, Quantitative < 0.4 mg/dL (0.00-0.90) Triglycerides Level 370 MG/DL (30-150) H Cholesterol Level 217 MG/DL (< 200) H LDL Cholesterol 120 mg/dL (<100) H HDL Cholesterol 35 MG/DL (40-60) L Cholesterol/HDL Ratio 6.2 (3.3-4.4) H Thyroid Stimulating Hormone (TSH) 1.422 uiU/mL (0.358-3.740) Vidal Walden MD Dec 13, 2019 20:16
--- NOTE | 2019-12-13 20:30 | NUR ---
NURSE NOTES: dr. de la vega here to see patient
[2019-12-13] MEDS ORDERED: QUEtiapine 200mg tab ORAL SCH (21:00)
--- NOTE | 2019-12-13 22:00 | NUR ---
HAND-OFF: Report given to petrona bell.
--- NOTE | 2019-12-13 22:10 | NUR ---
NURSE NOTES: RECEIVED PATIENT FROM ARNOL VANEGAS.
--- NOTE | 2019-12-13 22:50 | NUR ---
NURSE NOTES: GIVEN MORPHINE 2 MG BY IVP SLOWLY FOR BACK PAIN OF 8/10 PRN ORDER AT 2242PM. PATIENT ALERT, ORIENTED X3, DENIED DIZZINESS OR SOB, ON O2 2LPM VIA NC, WILL CONTINUE TO MONITOR.
--- NOTE | 2019-12-13 23:13 | NUR ---
NURSE NOTES: PATIENT CALM, NO PAIN NOTED AFTER PAIN INTERVENTION, RESPIRATION REGULAR, O2 SATURATION 99% ON O2 2LPM VIA NC, HEART RATE 50'S/MIN SINUS JAMEEL NOTED, ABDOMEN SOFT, NO BM STATUS, BSC AT BED SIDE, PERIPHERAL LINE TO RIGHT FA INTACT AND PATENT, LEFT AC INFILTRATED, ONGOING IV FLUID NS AT 125ML/HR VIA RIGHT SIDE PPL, KEPT FALL AND ASPIRATION PRECAUTION, ON BED ALARM AND LOCKED, MADE LOWER BED POSITION, PROVIDED CALL LIGHT WITHIN REACH, WILL CONTINUE TO MONITOR.
[2019-12-14] VITALS (10 sets, daily range): BP systolic 133–163; BP diastolic 59–94
--- NOTE | 2019-12-14 00:54 | NUR ---
NURSE NOTES: PATIENT AWOKE, WATCHING THE TV IN BED, NO PAIN OR DISTRESS NOTED AT THIS TIME.
[2019-12-14] MEDS: LORazepam Inj 2mg/ml 1ml IV PRN ×3 (01:39→16:46)
--- NOTE | 2019-12-14 01:39 | NUR ---
NURSE NOTES: LE; PATIENT WANTED TO SMOKE AND ANXIOUS STATUS, GIVEN ATIVAN 0.5MG BY IVP SLOWLY PRN ORDER THAT GIVEN HOSPITAL PROTOCOLS, WILL CONTINUE TO MONITOR.
--- NOTE | 2019-12-14 02:01 | NUR ---
TRANSFER TO FLOOR: Patient transferred to [facility] room 238-1 via hospital bed. Report given to ARNOL RODRIGES. Belongings and medications given to receiving nurse. Patient alert, oriented x3, no acute distress noted while transfer.
--- NOTE | 2019-12-14 02:10 | NUR ---
NURSE NOTES: Received pt from Andres RN from ICU. pt is AO X2, denies pain at this time. pt appears to be restless and agitated at this time. pt is on room air, saturation at 94%. no s/sx of respiratory distress noted. front desk monitor shows SR; no acute cardiac distress noted. RFA 22g IV site is patent and intact, running NS at 125 cc/hr. LAC 22 g IV site is patent and intact, asymptomatic. bed in lowest position and locked, siderails up X3, call light within reach. will continue to monitor.
[2019-12-14] MEDS ORDERED: Omnipaque 350 100ml vial INJ PRN (02:15)
[2019-12-14] MEDS ORDERED: Labetalol 5mg/ml 20ml vial IV PRN ×3 (02:15→17:48)
--- NOTE | 2019-12-14 02:15 | Consultation ---
DATE OF CONSULTATION: 12/13/2019 CARDIOLOGY CRITICAL CARE NOTE CONSULTING PHYSICIAN: Vidal Walden M.D. REASON FOR CRITICAL CARE EVALUATION: Hypotension. HISTORY OF PRESENT ILLNESS: The nursing unit had called me last night due to the patient's blood pressure dropping in the 70s. Orders were given. The patient was given a bolus of 250 mL and that did not help. I was notified again about the persistent low blood pressure, another bolus was administered, and that was not effective. Recommendation was given for the patient to be transferred to the intensive care unit to start Levophed. I got a call back from the nursing staff that they were unable to start the Levophed because of lack of central line and they asked that I call the emergency room physician. I did call the emergency room physician last night requesting if they could place a central line. I was subsequently notified by the nursing staff, central line was not placed as the patient became agitated, but another bolus of 500 mL of normal saline was administered and recommendation possibly to start on Levophed was put on hold because of lack of IV access. The patient remained agitated. Eventually in the morning, I did check with the supervisor cook house as well as the nursing staff. The patient's blood pressure had improved and therefore no longer required any pressors, had to deal with that, and labs were ordered to assess any drop in her hemoglobin as a cause of the patient's hypotension and cardiac enzymes were also ordered, all of which were negative. The patient's blood tests were reviewed this morning with the ICU staff. Case was discussed with the patient and primary care physician, Dr. Dariusz Knox as well as Dr. Mackey. The patient remained in the intensive care unit. On my arrival, at this time, she denies any chest pain. She is feeling much better. She says her back pain has been present for many years and she has been dealing with this, she continues to have at this time. PHYSICAL EXAMINATION: VITAL SIGNS: Her most recent vital signs, blood pressure 139/70 with a heart rate of 52 to 71 and saturation to 99%. She is afebrile at 97.9. LUNGS: Clear to auscultation and percussion. CARDIAC: S1 is normal. S2 is normal. Regular rate and rhythm. No heaves or thrills. ABDOMEN: Soft and nontender. Positive bowel sounds. EXTREMITIES: There is no clubbing, cyanosis, or edema. NEUROLOGICAL: She is awake, alert, and responsive. LABORATORY VALUES AND DIAGNOSTIC DATA: Sodium 145, potassium 4.3, chloride 107, bicarb 30, BUN 17, creatinine 0.8, glucose of 161, and calcium is 8.7. Troponin was 0.12. Triglycerides of 370, total cholesterol 217, LDL of 122, and HDL of 35. TSH of 1.42. INR is 0.9 and PTT of 29. No further imaging was obtained. The patient's EKG shows normal sinus rhythm. No ST or T-wave abnormalities. Telemetry shows sinus rhythm, no ST or T-wave abnormality. ASSESSMENT: 1. Hypotension, likely medication induced. 2. Chest pain. 3. History of hypotension. 4. Low back pain. 5. Anxiety and depression. PLAN: This patient was seen in critical care. Cardiology was rendered even though I was off-site. The patient's care duration approximately 45 minutes to 55 minutes' duration of critical evaluation to stabilize the patient eventually several boluses of fluids. The patient appears to be doing well at this time and is hemodynamically much improved in response to the treatment that she has been rendered and she will be transferred out of the intensive care unit to the step-down unit for observation. Echocardiogram has been performed, which showed normal left ventricular systolic function. Labs will be checked in the morning. Vital signs will be monitored. The patient's blood pressure medications may need to be readjusted. She is taking clonidine 0.2 mg three times a day and that may be necessary to resume to prevent rebound hypertension. The patient has refused performing the CT angiography as she appears to be not symptomatic from any chest pain at this time nor of upper back pain and her hemoglobin has remained relatively stable. Labs will be repeated in the morning. Vidal Walden M.D. DR: TIFFANIE JOB#: [id number] CC:
[2019-12-14] MEDS ORDERED: Nitroglycerin Subl 0.4mg tab SL PRN ×2 (02:20→17:49)
[2019-12-14] MEDS ORDERED: Enalaprilat 2.5mg/2ml Inj IV PRN ×2 (02:30→17:48)
[2019-12-14] MEDS ORDERED: Miralax 17gm pkt ORAL PRN ×2 (02:30→17:50)
[2019-12-14] MEDS ORDERED: Lisinopril 10mg tab ORAL PRN ×2 (02:30→17:49)
[2019-12-14] MEDS ORDERED: HYDROcodone/Acetamin 5/325 tab ORAL PRN ×2 (02:30→17:48)
[2019-12-14] MEDS ORDERED: Methocarbamol 500mg tab ORAL PRN ×2 (02:30→17:49)
[2019-12-14] MEDS ORDERED: dilTIAZem HCl 25mg/5ml Inj IV PRN ×2 (03:00→17:48)
[2019-12-14] MEDS ORDERED: Albuterol/Ipratropium 3ml neb HHN PRN ×2 (03:00→17:48)
[2019-12-14] MEDS: Morphine Sulfate 2mg/ml Inj(IV/IM USE ONLY) IVP PRN ×3 (04:45→18:20)
--- NOTE | 2019-12-14 05:00 | NUR ---
NURSE NOTES: pt appears to be upset. continues to ask to call daughter. attempted to call daughter for pt, however, no answer and unable to leave voicemail d/t full mailbox. pt continues to demand need to smoke. explained to pt that she is not able to smoke per hospital policy. will continue to monitor.
[2019-12-14 06:49] LABS: BASOPHILS % (AUTO) 0.9 % (0.0-2.0); EOSINOPHILS % (AUTO) 1.8 % (0.0-3.0); HEMATOCRIT 40.1 % (37.0-47.0); HEMOGLOBIN 13.5 G/DL (12.0-16.0); LYMPHOCYTES % (AUTO) 44.7 % (20.0-45.0); MEAN CORPUSCULAR VOLUME 91 FL (80-99); MONOCYTES % (AUTO) 4.2 % (1.0-10.0); NEUTROPHILS % (AUTO) 48.3 % (45.0-75.0); PLATELET COUNT 132 K/UL (150-450); RED BLOOD COUNT 4.39 M/UL (4.20-5.40); RED CELL DISTRIBUTION WIDTH 13.4 % (11.6-14.8); WHITE BLOOD COUNT 5.6 K/UL (4.8-10.8)
[2019-12-14 07:32] LABS: ANION GAP 8 mmol/L (5-15); BLOOD UREA NITROGEN 10 mg/dL (7-18); CALCIUM 8.7 MG/DL (8.5-10.1); CARBON DIOXIDE 30 MMOL/L (21-32); CHLORIDE 109 MMOL/L (98-107); CREATININE 0.7 MG/DL (0.55-1.30); POTASSIUM 4.2 MMOL/L (3.5-5.1); SODIUM 147 MMOL/L (136-145)
--- NOTE | 2019-12-14 07:39 | NUR ---
HAND-OFF: Report given to ARNOL Heaton. pt is in stable condition.
--- NOTE | 2019-12-14 07:39 | NUR ---
NURSE NOTES: Received report ARNOL Mcconnell,patient asleep,resting,with IV fluids,fall risk,watch closely,call light at reach
[2019-12-14] MEDS ORDERED: Heparin 5000 units/ml inj SUBQ SCH (09:00)
[2019-12-14] MEDS ORDERED: cloNIDine 0.2mg Tab ORAL SCH ×2 (09:00→14:00)
--- NOTE | 2019-12-14 09:26 | General Progress Note ---
Assessment/Plan Assessment/Plan: (1) Opioid Dependency (2) Anxiety/Depression (3) Lumbar DDD (4) Lumbar Spondylosis Patient will be continued on Robaxin, Mesilla and Morphine D/w Dr. Alexis and he concurred Subjective Date patient seen: Dec 14, 2019 Allergies: Coded Allergies: CIPROFLOXACIN (Verified Allergy, Unknown, 12/12/19) KETOROLAC (Verified Allergy, Unknown, 12/12/19) NSAIDS (NON-STEROIDAL ANTI-INFLAMMA (Verified Allergy, Unknown, 12/12/19) Subjective Constitutional: Reports: no symptoms Eye: Reports: no symptoms ENT: Reports: no symptoms Respiratory: Reports: no symptoms Cardiovascular: Reports: no symptoms Gastrointestinal: Reports: no symptoms Genitourinary: Reports: no symptoms Musculoskeletal: Reports: back pain Skin: Reports: no symptoms Psychiatric: Reports: no symptoms Neurological: Reports: no symptoms Endocrine: Reports: no symptoms Hematologic/Lymphatic: Reports: no symptoms SUBJECTIVE Patient reports that she his feeling better and would like to be discharged, I d/w nurse and she will d/w Dr. Knox if discharge is feasible at this time. She has been tolerating the pain on the Mesilla and Morphine. Was unable to get the suboxone from her home due to daughter not picking up her phone. Objective Last 24 Hour Vital Signs Date Time Temp Pulse Resp B/P (MAP) Pulse Ox O2 Delivery O2 Flow Rate FiO2 12/14/19 07:50 80 21 95 Room Air 21 12/14/19 07:50 95 Room Air 21 12/14/19 04:00 72 12/14/19 04:00 98.1 65 20 159/87 (111) 94 12/14/19 04:00 Room Air 12/14/19 02:05 65 12/14/19 02:00 98.1 58 12 147/71 (96) 94 12/14/19 01:00 58 15 133/59 (83) 98 12/14/19 00:00 97.5 52 12 142/65 (90) 98 12/14/19 00:00 Nasal Cannula 2.0 12/13/19 23:45 141/75 12/13/19 23:00 54 12 139/55 (83) 98 12/13/19 22:00 58 16 149/67 (94) 98 12/13/19 21:00 54 16 145/67 (93) 97 12/13/19 20:36 98 Nasal Cannula 2.0 28 12/13/19 20:36 54 13 98 Nasal Cannula 2.0 28 12/13/19 20:00 55 12/13/19 20:00 98.0 55 18 144/69 (94) 96 12/13/19 20:00 Nasal Cannula 2.0 12/13/19 19:00 52 18 139/70 (93) 99 12/13/19 18:00 71 17 178/76 (110) 99 12/13/19 17:25 148/58 12/13/19 17:00 64 17 152/70 (97) 96 12/13/19 16:00 79 12/13/19 16:00 97.9 77 23 141/72 (95) 99 12/13/19 15:00 82 16 167/75 (105) 98 12/13/19 15:00 Nasal Cannula 2.0 12/13/19 14:00 77 15 157/76 (103) 99 12/13/19 13:48 180/84 12/13/19 13:00 59 15 153/67 (95) 94 12/13/19 12:00 97.8 59 18 138/62 (87) 93 12/13/19 12:00 70 12/13/19 11:00 67 16 143/71 (95) 100 12/13/19 10:11 75 153/91 12/13/19 10:11 153/91 12/13/19 10:00 78 26 153/91 (111) 97 12/13/19 10:00 78 Intake and Output 12/13/19 12/14/19 19:00 07:00 Intake Total 2730 ml 2295 ml Output Total 550 ml 1250 ml Balance 2180 ml 1045 ml Intake Oral 1180 ml 1020 ml IV Total 1500 ml 1275 ml Other 50 ml Output Urine Total 550 ml 1250 ml # Voids 2 4 Laboratory Tests 12/14/19 06:45: White Blood Count 5.6, Red Blood Count 4.39, Hemoglobin 13.5, Hematocrit 40.1, Mean Corpuscular Volume 91, Mean Corpuscular Hemoglobin 30.7, Mean Corpuscular Hemoglobin Concent 33.6, Red Cell Distribution Width 13.4, Platelet Count 132L, Mean Platelet Volume 7.5, Neutrophils (%) (Auto) 48.3, Lymphocytes (%) (Auto) 44.7, Monocytes (%) (Auto) 4.2, Eosinophils (%) (Auto) 1.8, Basophils (%) (Auto ) 0.9, Sodium Level 147H, Potassium Level 4.2, Chloride Level 109H, Carbon Dioxide Level 30, Anion Gap 8, Blood Urea Nitrogen 10, Creatinine 0.7, Estimat Glomerular Filtration Rate > 60, Glucose Level 138H, Calcium Level 8.7, Troponin I 0.008, Pro-B-Type Natriuretic Peptide 564H Height (Feet): 5 Height (Inches): 3.00 Weight (Pounds): 156 Objective General Appearance: no apparent distress, alert HEENT: PERRL Neck: non-tender, supple Respiratory/Chest: lungs clear, normal breath sounds Cardiovascular/Chest: normal rate, regular rhythm Abdomen: non tender, soft Extremities: non-tender, normal inspection Skin Exam: warm/dry Neurologic: alert, oriented x 3 Mihai Hooker Dec 14, 2019 09:26
--- NOTE | 2019-12-14 09:55 | NUR ---
PT NOTE Received MD order for PT evaluation. Patient transferred to ICU after MD order written, patient currently in SDU. Will need MD order to resume PT, Florina AMBROSE notified, will follow.
--- NOTE | 2019-12-14 10:00 | NUR ---
NURSE NOTES: Patient suddenly went to rest room,without calling,removed cardiac cath lab radiology technologist inspite,constant instructions to call before getting out bed,fall risk,close watch,keeps on asking to call daughter but unable ,no answer,patient has been notified,she is frustrated,emotional support provided,talk to her
--- NOTE | 2019-12-14 11:15 | NUR ---
NURSE NOTES: Received report from ARNOL Heaton, pt. in bed awake- A/O x's 2- able to make needs know, no signs or symptoms of acute cardiac or respiratory distress noted, bed alarm on, side rails up x's3 and safety brakes engaged, pt. aware to ask for assist when ambulating- pt. non-compliant at times not asking for assist- pt. aware she is a fall risk, pt. has 2L NC- but refuses to keep on- pt. teaching done- but pt. continues to refuse to wear NC, call light within easy reach, pt. appears to be clean and dry, pt. has bed side commode aware to ask for assist- refuses to use bed blank, RFA 22G running NS at 125mls/hr- IV intact and patent, LAC 22G IV intact and patent, safety measures continued, will continue with plan of care.
--- NOTE | 2019-12-14 11:33 | Pulmonology Progress Note ---
Assessment/Plan Problems: (1) Uncontrolled hypertension (2) Chronic back pain (3) History of hypertension (4) Hysterical personality disorder Assessment/Plan still agitated, her daughter is not answering her phone calls. f/u cardio evaluation monitor BP psych evaluation. Subjective ROS Limited/Unobtainable: No Constitutional: Reports: no symptoms HEENT: Repors: no symptoms Respiratory: Reports: no symptoms Allergies: Coded Allergies: CIPROFLOXACIN (Verified Allergy, Unknown, 12/12/19) KETOROLAC (Verified Allergy, Unknown, 12/12/19) NSAIDS (NON-STEROIDAL ANTI-INFLAMMA (Verified Allergy, Unknown, 12/12/19) Objective Last 24 Hour Vital Signs Date Time Temp Pulse Resp B/P (MAP) Pulse Ox O2 Delivery O2 Flow Rate FiO2 12/14/19 10:23 141/94 12/14/19 10:17 84 141/94 12/14/19 07:50 80 21 95 Room Air 21 12/14/19 07:50 95 Room Air 21 12/14/19 04:00 72 12/14/19 04:00 98.1 65 20 159/87 (111) 94 12/14/19 04:00 Room Air 12/14/19 02:05 65 12/14/19 02:00 98.1 58 12 147/71 (96) 94 12/14/19 01:00 58 15 133/59 (83) 98 12/14/19 00:00 97.5 52 12 142/65 (90) 98 12/14/19 00:00 Nasal Cannula 2.0 12/13/19 23:45 141/75 12/13/19 23:00 54 12 139/55 (83) 98 12/13/19 22:00 58 16 149/67 (94) 98 12/13/19 21:00 54 16 145/67 (93) 97 12/13/19 20:36 98 Nasal Cannula 2.0 28 12/13/19 20:36 54 13 98 Nasal Cannula 2.0 28 12/13/19 20:00 55 12/13/19 20:00 98.0 55 18 144/69 (94) 96 12/13/19 20:00 Nasal Cannula 2.0 12/13/19 19:00 52 18 139/70 (93) 99 12/13/19 18:00 71 17 178/76 (110) 99 12/13/19 17:25 148/58 12/13/19 17:00 64 17 152/70 (97) 96 12/13/19 16:00 79 12/13/19 16:00 97.9 77 23 141/72 (95) 99 12/13/19 15:00 82 16 167/75 (105) 98 12/13/19 15:00 Nasal Cannula 2.0 12/13/19 14:00 77 15 157/76 (103) 99 12/13/19 13:48 180/84 12/13/19 13:00 59 15 153/67 (95) 94 12/13/19 12:00 97.8 59 18 138/62 (87) 93 12/13/19 12:00 70 Intake and Output 12/13/19 12/14/19 19:00 07:00 Intake Total 2730 ml 2295 ml Output Total 550 ml 1250 ml Balance 2180 ml 1045 ml Intake Oral 1180 ml 1020 ml IV Total 1500 ml 1275 ml Other 50 ml Output Urine Total 550 ml 1250 ml # Voids 2 4 General Appearance: WD/WN HEENT: normocephalic Respiratory/Chest: chest wall non-tender, lungs clear Breasts: no masses Cardiovascular: normal peripheral pulses Abdomen: normal bowel sounds, soft, non tender Genitourinary: normal external genitalia Skin: no rash Neurologic/Psychiatric: practice or student teacher II-XII grossly normal Laboratory Tests 12/14/19 06:45: White Blood Count 5.6, Red Blood Count 4.39, Hemoglobin 13.5, Hematocrit 40.1, Mean Corpuscular Volume 91, Mean Corpuscular Hemoglobin 30.7, Mean Corpuscular Hemoglobin Concent 33.6, Red Cell Distribution Width 13.4, Platelet Count 132L, Mean Platelet Volume 7.5, Neutrophils (%) (Auto) 48.3, Lymphocytes (%) (Auto) 44.7, Monocytes (%) (Auto) 4.2, Eosinophils (%) (Auto) 1.8, Basophils (%) (Auto ) 0.9, Sodium Level 147H, Potassium Level 4.2, Chloride Level 109H, Carbon Dioxide Level 30, Anion Gap 8, Blood Urea Nitrogen 10, Creatinine 0.7, Estimat Glomerular Filtration Rate > 60, Glucose Level 138H, Calcium Level 8.7, Troponin I 0.008, Pro-B-Type Natriuretic Peptide 564H Current Medications Medications (Trade) Dose Ordered Sig/Maureen Route PRN Reason Start Time Stop Time Status Last Admin Dose Admin Acetaminophen (Tylenol) 650 mg Q4H PRN ORAL FEVER 12/14/19 03:00 01/11/20 06:59 Acetaminophen/ Hydrocodone Bitart ([place] 5/325) 1 tab Q6H PRN ORAL Moderate Pain (Pain Scale 4-6) 12/14/19 02:30 12/19/19 02:29 Albuterol/ Ipratropium (Albuterol/ Ipratropium) 3 ml Q4H PRN HHN Shortness of Breath 12/14/19 03:00 12/17/19 06:59 Amlodipine Besylate (Norvasc) 5 mg DAILY ORAL 12/14/19 09:00 01/11/20 17:59 12/14/19 10:17 Clonidine HCl (Catapres tab) 0.2 mg THREE TIMES A DAY ORAL 12/14/19 09:00 01/11/20 12:59 12/14/19 10:23 Diltiazem HCl (Cardizem) 10 mg Q1H PRN IV heart rate more than 120, 12/14/19 03:00 01/11/20 06:59 Enalaprilat (Vasotec) 2.5 mg Q6H PRN IV sbp more than 160 12/14/19 02:30 01/11/20 02:29 Gabapentin (Neurontin) 600 mg THREE TIMES A DAY ORAL 12/14/19 09:00 01/11/20 12:59 12/14/19 10:16 Heparin Sodium (Porcine) (Heparin 5000 units/ml) 5,000 units EVERY 12 HOURS SUBQ 12/14/19 09:00 01/11/20 10:50 Labetalol HCl (Normodyne) 20 mg Q1HR PRN IV To Patient Comfort 12/14/19 02:15 01/13/20 02:14 Lisinopril (ZestriL) 10 mg BID PRN ORAL HTN (see dose instructions) 12/14/19 02:30 01/11/20 02:29 Lorazepam (Ativan 2mg/ml 1ml) 0.5 mg Q4H PRN IV For Anxiety 12/14/19 02:30 12/19/19 02:29 12/14/19 10:40 Methocarbamol (Robaxin) 500 mg QID PRN ORAL Muscle Spasm 12/14/19 02:30 01/12/20 02:29 Morphine Sulfate (Morphine Sulfate) 2 mg Q4H PRN IVP Severe Pain (Pain Scale 7-10) 12/14/19 02:30 12/20/19 02:29 12/14/19 04:45 Nitroglycerin (Ntg) 0.4 mg Q5M PRN SL Prn Chest Pain 12/14/19 02:20 01/11/20 06:59 Ondansetron HCl (Zofran) 4 mg Q6H PRN IVP Nausea & Vomiting 12/14/19 02:45 01/11/20 02:44 Pantoprazole (Protonix) 40 mg DAILY ORAL 12/14/19 09:00 01/11/20 10:50 12/14/19 10:16 Polyethylene Glycol (Miralax) 17 gm DAILYPRN PRN ORAL Constipation 12/14/19 02:30 01/11/20 02:29 Quetiapine Fumarate (SEROqueL) 200 mg BEDTIME ORAL 12/14/19 21:00 01/12/20 20:59 Sodium Chloride 1,000 ml @ 125 mls/hr Q8H IV 12/14/19 02:15 01/12/20 01:59 12/14/19 10:18 Temazepam (Restoril) 15 mg HSPRN PRN ORAL Insomnia 12/14/19 02:30 12/19/19 02:29 Froylan Mackey MD Dec 14, 2019 11:33
--- NOTE | 2019-12-14 15:01 | NUR ---
NURSE NOTES: pt. asking me to contact her daughter Cornelio at [phone]- unable to reach daughter and leave message as voicemail box is full. pt. aware.
--- NOTE | 2019-12-14 15:05 | General Progress Note ---
Assessment/Plan Problem List: (1) Uncontrolled hypertension ICD Codes: I10 - Essential (primary) hypertension SNOMED: 53809714, [id number] Status: stable, progressing Assessment/Plan: o2 pulm tx bp control pt diet cardio f/u cbc bmp am dc plan if clear Subjective Constitutional: Reports: weakness Allergies: Coded Allergies: CIPROFLOXACIN (Verified Allergy, Unknown, 12/12/19) KETOROLAC (Verified Allergy, Unknown, 12/12/19) NSAIDS (NON-STEROIDAL ANTI-INFLAMMA (Verified Allergy, Unknown, 12/12/19) All Systems: reviewed and negative except above Subjective sleepy calm Objective Last 24 Hour Vital Signs Date Time Temp Pulse Resp B/P (MAP) Pulse Ox O2 Delivery O2 Flow Rate FiO2 12/14/19 13:40 157/73 12/14/19 13:04 98.1 12/14/19 12:35 73 20 158/70 (99) 12/14/19 12:00 Room Air 12/14/19 12:00 98.0 63 20 158/70 (99) 94 12/14/19 11:49 60 12/14/19 10:23 141/94 12/14/19 10:17 84 141/94 12/14/19 07:50 80 21 95 Room Air 21 12/14/19 07:50 95 Room Air 21 12/14/19 04:00 72 12/14/19 04:00 98.1 65 20 159/87 (111) 94 12/14/19 04:00 Room Air 12/14/19 02:05 65 12/14/19 02:00 98.1 58 12 147/71 (96) 94 12/14/19 01:00 58 15 133/59 (83) 98 12/14/19 00:00 97.5 52 12 142/65 (90) 98 12/14/19 00:00 Nasal Cannula 2.0 12/13/19 23:45 141/75 12/13/19 23:00 54 12 139/55 (83) 98 12/13/19 22:00 58 16 149/67 (94) 98 12/13/19 21:00 54 16 145/67 (93) 97 12/13/19 20:36 98 Nasal Cannula 2.0 28 12/13/19 20:36 54 13 98 Nasal Cannula 2.0 28 12/13/19 20:00 55 12/13/19 20:00 98.0 55 18 144/69 (94) 96 12/13/19 20:00 Nasal Cannula 2.0 12/13/19 19:00 52 18 139/70 (93) 99 12/13/19 18:00 71 17 178/76 (110) 99 12/13/19 17:25 148/58 12/13/19 17:00 64 17 152/70 (97) 96 12/13/19 16:00 79 12/13/19 16:00 97.9 77 23 141/72 (95) 99 Intake and Output 12/13/19 12/14/19 19:00 07:00 Intake Total 2730 ml 2295 ml Output Total 550 ml 1250 ml Balance 2180 ml 1045 ml Intake Oral 1180 ml 1020 ml IV Total 1500 ml 1275 ml Other 50 ml Output Urine Total 550 ml 1250 ml # Voids 2 4 Laboratory Tests 12/14/19 06:45: White Blood Count 5.6, Red Blood Count 4.39, Hemoglobin 13.5, Hematocrit 40.1, Mean Corpuscular Volume 91, Mean Corpuscular Hemoglobin 30.7, Mean Corpuscular Hemoglobin Concent 33.6, Red Cell Distribution Width 13.4, Platelet Count 132L, Mean Platelet Volume 7.5, Neutrophils (%) (Auto) 48.3, Lymphocytes (%) (Auto) 44.7, Monocytes (%) (Auto) 4.2, Eosinophils (%) (Auto) 1.8, Basophils (%) (Auto ) 0.9, Sodium Level 147H, Potassium Level 4.2, Chloride Level 109H, Carbon Dioxide Level 30, Anion Gap 8, Blood Urea Nitrogen 10, Creatinine 0.7, Estimat Glomerular Filtration Rate > 60, Glucose Level 138H, Calcium Level 8.7, Troponin I 0.008, Pro-B-Type Natriuretic Peptide 564H Height (Feet): 5 Height (Inches): 3.00 Weight (Pounds): 156 General Appearance: lethargic EENT: normal ENT inspection Neck: normal alignment Cardiovascular: normal peripheral pulses, normal rate, regular rhythm Respiratory/Chest: chest wall non-tender, lungs clear, normal breath sounds Abdomen: normal bowel sounds, non tender, soft Extremities: normal inspection Edema: no edema noted Arm (L), no edema noted Arm (R), no edema noted Leg (L), no edema noted Leg (R), no edema noted Pedal (L), no edema noted Pedal (R), no edema noted Generalized Neurologic: motor weakness Skin: normal pigmentation, warm/dry Dariusz Knox DO Dec 14, 2019 15:05
--- NOTE | 2019-12-14 17:41 | NUR ---
NURSE NOTES: pt. transferred to tele room 214-1- pt. remains stable upon transfer- report given to Tamela AMBROSE.
[2019-12-14] MEDS ORDERED: LORazepam Inj 2mg/ml 1ml IV PRN (17:49)
--- NOTE | 2019-12-14 17:50 | NUR ---
NURSE NOTES: Received Patient from Dayanara Joseph. Patient is sleeping comfortably no signs and symptoms of distress of pain or discomfort. Per Rn patient refusing to used nasal cannula. Call gomez within reached. Fall precautions in place. will follow
--- NOTE | 2019-12-14 18:00 | NUR ---
NURSE NOTES: Patient now awake, confused and agitated. patient looking for her daughter asking staff to call police to search for her daughter. able to calm down patient and re orientation provided. Vitals obtained oxygen saturation 98% on room air. PAtient requested MOrphine for Low back pain. At this time patient eating her dinner. was able to ambulate to the bathroom with staff assist. patient oriented to new room and surroundings. Encouraged the use of call gomez. Will continue to monitor.
--- NOTE | 2019-12-14 19:12 | Cardiology Progress Note ---
Subjective Cardiovascular: Denies: chest pain, lightheadedness, palpitations Respiratory: Denies: shortness of breath Gastrointestinal/Abdominal: Denies: abdominal pain Genitourinary: Denies: burning Subjective low back pain Objective Last 24 Hour Vital Signs Date Time Temp Pulse Resp B/P (MAP) Pulse Ox O2 Delivery O2 Flow Rate FiO2 12/14/19 18:11 98.6 78 20 163/77 (105) 98 12/14/19 16:00 98.4 61 20 152/86 (108) 94 12/14/19 16:00 Room Air 12/14/19 15:29 65 12/14/19 13:40 157/73 12/14/19 13:04 98.1 12/14/19 12:35 73 20 158/70 (99) 12/14/19 12:00 Room Air 12/14/19 12:00 98.0 63 20 158/70 (99) 94 12/14/19 11:49 60 12/14/19 10:23 141/94 12/14/19 10:17 84 141/94 12/14/19 08:02 74 12/14/19 08:00 97.7 72 20 141/94 (110) 96 12/14/19 08:00 Room Air 12/14/19 07:50 80 21 95 Room Air 21 12/14/19 07:50 95 Room Air 21 12/14/19 04:00 72 12/14/19 04:00 98.1 65 20 159/87 (111) 94 12/14/19 04:00 Room Air 12/14/19 02:05 65 12/14/19 02:00 98.1 58 12 147/71 (96) 94 12/14/19 01:00 58 15 133/59 (83) 98 12/14/19 00:00 97.5 52 12 142/65 (90) 98 12/14/19 00:00 Nasal Cannula 2.0 12/13/19 23:45 141/75 12/13/19 23:00 54 12 139/55 (83) 98 12/13/19 22:00 58 16 149/67 (94) 98 12/13/19 21:00 54 16 145/67 (93) 97 12/13/19 20:36 98 Nasal Cannula 2.0 28 12/13/19 20:36 54 13 98 Nasal Cannula 2.0 28 2/26/20 20:00 55 12/13/19 20:00 98.0 55 18 144/69 (94) 96 12/13/19 20:00 Nasal Cannula 2.0 General Appearance: no apparent distress, alert Neck: supple Cardiovascular: normal rate Respiratory/Chest: lungs clear Abdomen: normal bowel sounds, non tender, soft Extremities: no swelling Intake and Output 12/13/19 12/14/19 19:00 07:00 Intake Total 2730 ml 2295 ml Output Total 550 ml 1250 ml Balance 2180 ml 1045 ml Intake Oral 1180 ml 1020 ml IV Total 1500 ml 1275 ml Other 50 ml Output Urine Total 550 ml 1250 ml # Voids 2 4 Laboratory Tests Test 12/14/19 06:45 White Blood Count 5.6 K/UL (4.8-10.8) Red Blood Count 4.39 M/UL (4.20-5.40) Hemoglobin 13.5 G/DL (12.0-16.0) Hematocrit 40.1 % (37.0-47.0) Mean Corpuscular Volume 91 FL (80-99) Mean Corpuscular Hemoglobin 30.7 PG (27.0-31.0) Mean Corpuscular Hemoglobin Concent 33.6 G/DL (32.0-36.0) Red Cell Distribution Width 13.4 % (11.6-14.8) Platelet Count 132 K/UL (150-450) L Mean Platelet Volume 7.5 FL (6.5-10.1) Neutrophils (%) (Auto) 48.3 % (45.0-75.0) Lymphocytes (%) (Auto) 44.7 % (20.0-45.0) Monocytes (%) (Auto) 4.2 % (1.0-10.0) Eosinophils (%) (Auto) 1.8 % (0.0-3.0) Basophils (%) (Auto) 0.9 % (0.0-2.0) Sodium Level 147 MMOL/L (136-145) H Potassium Level 4.2 MMOL/L (3.5-5.1) Chloride Level 109 MMOL/L (98-107) H Carbon Dioxide Level 30 MMOL/L (21-32) Anion Gap 8 mmol/L (5-15) Blood Urea Nitrogen 10 mg/dL (7-18) Creatinine 0.7 MG/DL (0.55-1.30) Estimat Glomerular Filtration Rate > 60 mL/min (>60) Glucose Level 138 MG/DL (74-106) H Calcium Level 8.7 MG/DL (8.5-10.1) Troponin I 0.008 ng/mL (0.000-0.056) Pro-B-Type Natriuretic Peptide 564 pg/mL (0-125) H Vidal Walden MD Dec 14, 2019 19:12
--- NOTE | 2019-12-14 19:13 | Cardiology Progress Note ---
Assessment/Plan Assessment/Plan 1. Hypotension, likely medication induced. 2. Chest pain. 3. History of hypotension. 4. Low back pain. 5. Anxiety and depression. all torp neg bnp normla refused cta ambualte bp seem ok so far home soon Subjective Cardiovascular: Denies: chest pain Respiratory: Denies: SOB with excertion Gastrointestinal/Abdominal: Denies: abdominal pain Genitourinary: Denies: burning Subjective low back pain Objective Last 24 Hour Vital Signs Date Time Temp Pulse Resp B/P (MAP) Pulse Ox O2 Delivery O2 Flow Rate FiO2 12/14/19 18:11 98.6 78 20 163/77 (105) 98 12/14/19 16:00 98.4 61 20 152/86 (108) 94 12/14/19 16:00 Room Air 12/14/19 15:29 65 12/14/19 13:40 157/73 12/14/19 13:04 98.1 12/14/19 12:35 73 20 158/70 (99) 12/14/19 12:00 Room Air 12/14/19 12:00 98.0 63 20 158/70 (99) 94 12/14/19 11:49 60 12/14/19 10:23 141/94 12/14/19 10:17 84 141/94 12/14/19 08:02 74 12/14/19 08:00 97.7 72 20 141/94 (110) 96 12/14/19 08:00 Room Air 12/14/19 07:50 80 21 95 Room Air 21 12/14/19 07:50 95 Room Air 21 12/14/19 04:00 72 12/14/19 04:00 98.1 65 20 159/87 (111) 94 12/14/19 04:00 Room Air 12/14/19 02:05 65 12/14/19 02:00 98.1 58 12 147/71 (96) 94 12/14/19 01:00 58 15 133/59 (83) 98 12/14/19 00:00 97.5 52 12 142/65 (90) 98 12/14/19 00:00 Nasal Cannula 2.0 12/13/19 23:45 141/75 12/13/19 23:00 54 12 139/55 (83) 98 12/13/19 22:00 58 16 149/67 (94) 98 2/26/20 21:00 54 16 145/67 (93) 97 12/13/19 20:36 98 Nasal Cannula 2.0 28 12/13/19 20:36 54 13 98 Nasal Cannula 2.0 28 12/13/19 20:00 55 12/13/19 20:00 98.0 55 18 144/69 (94) 96 12/13/19 20:00 Nasal Cannula 2.0 General Appearance: alert Neck: supple Cardiovascular: normal rate, regular rhythm Abdomen: normal bowel sounds, non tender, soft Extremities: no swelling Intake and Output 12/13/19 12/14/19 19:00 07:00 Intake Total 2730 ml 2295 ml Output Total 550 ml 1250 ml Balance 2180 ml 1045 ml Intake Oral 1180 ml 1020 ml IV Total 1500 ml 1275 ml Other 50 ml Output Urine Total 550 ml 1250 ml # Voids 2 4 Laboratory Tests Test 12/14/19 06:45 White Blood Count 5.6 K/UL (4.8-10.8) Red Blood Count 4.39 M/UL (4.20-5.40) Hemoglobin 13.5 G/DL (12.0-16.0) Hematocrit 40.1 % (37.0-47.0) Mean Corpuscular Volume 91 FL (80-99) Mean Corpuscular Hemoglobin 30.7 PG (27.0-31.0) Mean Corpuscular Hemoglobin Concent 33.6 G/DL (32.0-36.0) Red Cell Distribution Width 13.4 % (11.6-14.8) Platelet Count 132 K/UL (150-450) L Mean Platelet Volume 7.5 FL (6.5-10.1) Neutrophils (%) (Auto) 48.3 % (45.0-75.0) Lymphocytes (%) (Auto) 44.7 % (20.0-45.0) Monocytes (%) (Auto) 4.2 % (1.0-10.0) Eosinophils (%) (Auto) 1.8 % (0.0-3.0) Basophils (%) (Auto) 0.9 % (0.0-2.0) Sodium Level 147 MMOL/L (136-145) H Potassium Level 4.2 MMOL/L (3.5-5.1) Chloride Level 109 MMOL/L (98-107) H Carbon Dioxide Level 30 MMOL/L (21-32) Anion Gap 8 mmol/L (5-15) Blood Urea Nitrogen 10 mg/dL (7-18) Creatinine 0.7 MG/DL (0.55-1.30) Estimat Glomerular Filtration Rate > 60 mL/min (>60) Glucose Level 138 MG/DL (74-106) H Calcium Level 8.7 MG/DL (8.5-10.1) Troponin I 0.008 ng/mL (0.000-0.056) Pro-B-Type Natriuretic Peptide 564 pg/mL (0-125) H Vidal Walden MD Dec 14, 2019 19:13
--- NOTE | 2019-12-14 19:30 | NUR ---
HAND-OFF: Report given to Yara Gustafson. Patient now sleeping comfortably in bed.
[2019-12-14] MEDS ORDERED: QUEtiapine 200mg tab ORAL SCH ×2 (21:00)
[2019-12-14] MEDS: Heparin 5000 units/ml inj SUBQ SCH (21:00)
[2019-12-14] MEDS: cloNIDine 0.2mg Tab ORAL SCH (22:52)
[2019-12-15] VITALS: BP 147/76
[2019-12-15] MEDS: Morphine Sulfate 2mg/ml Inj(IV/IM USE ONLY) IVP PRN ×2 (01:33→05:55)
[2019-12-15 04:00] VITALS: BP 147/71
[2019-12-15] MEDS: cloNIDine 0.2mg Tab ORAL SCH (05:54)
[2019-12-15 06:35] LABS: ANION GAP 11 mmol/L (5-15); BLOOD UREA NITROGEN 12 mg/dL (7-18); CALCIUM 9.3 MG/DL (8.5-10.1); CARBON DIOXIDE 27 MMOL/L (21-32); CHLORIDE 106 MMOL/L (98-107); CREATININE 0.8 MG/DL (0.55-1.30); SODIUM 144 MMOL/L (136-145)
[2019-12-15 06:59] LABS: EOSINOPHILS % (AUTO) 2.2 % (0.0-3.0); HEMATOCRIT 42.9 % (37.0-47.0); HEMOGLOBIN 14.8 G/DL (12.0-16.0); LYMPHOCYTES % (AUTO) 41.4 % (20.0-45.0); MEAN CORPUSCULAR VOLUME 91 FL (80-99); MONOCYTES % (AUTO) 4.1 % (1.0-10.0); NEUTROPHILS % (AUTO) 51.3 % (45.0-75.0); PLATELET COUNT 152 K/UL (150-450); RED BLOOD COUNT 4.73 M/UL (4.20-5.40); RED CELL DISTRIBUTION WIDTH 13.1 % (11.6-14.8); WHITE BLOOD COUNT 7.1 K/UL (4.8-10.8)
--- NOTE | 2019-12-15 07:37 | NUR ---
HAND-OFF: Report given to ARNOL WATERS.
[2019-12-15 08:00] VITALS: BP 179/71
[2019-12-15] MEDS: Heparin 5000 units/ml inj SUBQ SCH (08:26)
--- NOTE | 2019-12-15 09:05 | General Progress Note ---
Assessment/Plan Assessment/Plan: (1) Opioid Dependency (2) Anxiety/Depression (3) Lumbar DDD (4) Lumbar Spondylosis Patient will be continued on Robaxin, [place] and Morphine D/w Dr. Alexis and he concurred Subjective Date patient seen: Dec 15, 2019 Time patient seen: 08:30 - am Allergies: Coded Allergies: CIPROFLOXACIN (Verified Allergy, Unknown, 12/12/19) KETOROLAC (Verified Allergy, Unknown, 12/12/19) NSAIDS (NON-STEROIDAL ANTI-INFLAMMA (Verified Allergy, Unknown, 12/12/19) Subjective Constitutional: Reports: no symptoms Eye: Reports: no symptoms ENT: Reports: no symptoms Respiratory: Reports: no symptoms Cardiovascular: Reports: no symptoms Gastrointestinal: Reports: no symptoms Genitourinary: Reports: no symptoms Musculoskeletal: Reports: back pain Skin: Reports: no symptoms Psychiatric: Reports: no symptoms Neurological: Reports: no symptoms Endocrine: Reports: no symptoms Hematologic/Lymphatic: Reports: no symptoms SUBJECTIVE Patient has been transferred to [facility] and reports mild pain at this time. She has used 3 doses of the Morphine in the last 24hrs. Has no new complaints and continues to want to be discharged. Objective Last 24 Hour Vital Signs Date Time Temp Pulse Resp B/P (MAP) Pulse Ox O2 Delivery O2 Flow Rate FiO2 12/15/19 08:25 58 179/74 12/15/19 08:19 58 16 96 Room Air 21 12/15/19 08:19 96 Room Air 21 12/15/19 06:25 97.5 12/15/19 05:54 161/74 12/15/19 04:00 97.5 51 19 147/71 (96) 96 12/15/19 04:00 54 12/15/19 04:00 54 12/15/19 03:20 96.9 12/15/19 00:00 70 12/15/19 00:00 96.9 58 18 147/76 (99) 95 12/14/19 22:52 159/63 12/14/19 20:55 98 Room Air 21 12/14/19 20:55 56 16 97 Room Air 21 12/14/19 20:00 65 12/14/19 20:00 Room Air 12/14/19 20:00 97.6 73 21 156/90 (112) 96 12/14/19 18:11 98.6 78 20 163/77 (105) 98 12/14/19 16:00 98.4 61 20 152/86 (108) 94 12/14/19 16:00 Room Air 12/14/19 15:29 65 12/14/19 13:40 157/73 12/14/19 13:04 98.1 12/14/19 12:35 73 20 158/70 (99) 12/14/19 12:00 Room Air 12/14/19 12:00 98.0 63 20 158/70 (99) 94 12/14/19 11:49 60 12/14/19 10:23 141/94 12/14/19 10:17 84 141/94 Intake and Output 12/14/19 12/15/19 19:00 07:00 Intake Total 1198 ml 1550 ml Output Total 1100 ml Balance 98 ml 1550 ml Intake Oral 240 ml 300 ml IV Total 958 ml 1250 ml Output Urine Total 1100 ml # Voids 4 2 Laboratory Tests 12/15/19 05:45: White Blood Count 7.1, Red Blood Count 4.73, Hemoglobin 14.8, Hematocrit 42.9, Mean Corpuscular Volume 91, Mean Corpuscular Hemoglobin 31.2H, Mean Corpuscular Hemoglobin Concent 34.5, Red Cell Distribution Width 13.1, Platelet Count 152, Mean Platelet Volume 7.4, Neutrophils (%) (Auto) 51.3, Lymphocytes (%) (Auto) 41.4, Monocytes (%) (Auto) 4.1, Eosinophils (%) (Auto) 2.2, Basophils (%) (Auto ) 1.0, Sodium Level 144, Potassium Level 4.0, Chloride Level 106, Carbon Dioxide Level 27, Anion Gap 11, Blood Urea Nitrogen 12, Creatinine 0.8, Estimat Glomerular Filtration Rate > 60, Glucose Level 124H, Calcium Level 9.3 Height (Feet): 5 Height (Inches): 3.00 Weight (Pounds): 158 Objective General Appearance: no apparent distress, alert HEENT: PERRL Neck: non-tender, supple Respiratory/Chest: lungs clear, normal breath sounds Cardiovascular/Chest: normal rate, regular rhythm Abdomen: non tender, soft Extremities: non-tender, normal inspection Skin Exam: warm/dry Neurologic: alert, oriented x 3 Mihai Hooker Dec 15, 2019 09:05
--- NOTE | 2019-12-15 09:25 | NUR ---
PT NOTE Received MD order to resume PT. Attempted to see patient for PT evaluation however patient sleeping, medicated earlier with Ativan. Kan RN requesting not to disturb patient, will follow.
--- NOTE | 2019-12-15 09:44 | NUR ---
*-* INSURANCE *-* ALL AVAILABLE CLINICALS HAVE BEEN FAXED TO: MELISSA Roberts CM: Yeimy Fax Clinicals: [phone]
--- NOTE | 2019-12-15 11:53 | General Progress Note ---
Assessment/Plan Problem List: (1) Uncontrolled hypertension ICD Codes: I10 - Essential (primary) hypertension SNOMED: 87274312, [id number] Status: stable, progressing Assessment/Plan: o2 pulm tx bp control pt diet cardio f/u dc if clear Subjective Constitutional: Reports: weakness Allergies: Coded Allergies: CIPROFLOXACIN (Verified Allergy, Unknown, 12/12/19) KETOROLAC (Verified Allergy, Unknown, 12/12/19) NSAIDS (NON-STEROIDAL ANTI-INFLAMMA (Verified Allergy, Unknown, 12/12/19) All Systems: reviewed and negative except above Subjective sleepy calm Objective Last 24 Hour Vital Signs Date Time Temp Pulse Resp B/P (MAP) Pulse Ox O2 Delivery O2 Flow Rate FiO2 12/15/19 08:25 58 179/74 12/15/19 08:19 58 16 96 Room Air 21 12/15/19 08:19 96 Room Air 21 12/15/19 06:25 97.5 12/15/19 05:54 161/74 12/15/19 04:00 97.5 51 19 147/71 (96) 96 12/15/19 04:00 54 12/15/19 04:00 54 12/15/19 03:20 96.9 12/15/19 00:00 70 12/15/19 00:00 96.9 58 18 147/76 (99) 95 12/14/19 22:52 159/63 12/14/19 20:55 98 Room Air 21 12/14/19 20:55 56 16 97 Room Air 21 12/14/19 20:00 65 12/14/19 20:00 Room Air 12/14/19 20:00 97.6 73 21 156/90 (112) 96 12/14/19 18:11 98.6 78 20 163/77 (105) 98 12/14/19 16:00 98.4 61 20 152/86 (108) 94 12/14/19 16:00 Room Air 12/14/19 15:29 65 12/14/19 13:40 157/73 12/14/19 13:04 98.1 12/14/19 12:35 73 20 158/70 (99) 12/14/19 12:00 Room Air 12/14/19 12:00 98.0 63 20 158/70 (99) 94 Intake and Output 12/14/19 12/15/19 18:59 06:59 Intake Total 1323 ml 1550 ml Output Total 1100 ml Balance 223 ml 1550 ml Intake Oral 240 ml 300 ml IV Total 1083 ml 1250 ml Output Urine Total 1100 ml # Voids 4 2 Laboratory Tests 12/15/19 05:45: White Blood Count 7.1, Red Blood Count 4.73, Hemoglobin 14.8, Hematocrit 42.9, Mean Corpuscular Volume 91, Mean Corpuscular Hemoglobin 31.2H, Mean Corpuscular Hemoglobin Concent 34.5, Red Cell Distribution Width 13.1, Platelet Count 152, Mean Platelet Volume 7.4, Neutrophils (%) (Auto) 51.3, Lymphocytes (%) (Auto) 41.4, Monocytes (%) (Auto) 4.1, Eosinophils (%) (Auto) 2.2, Basophils (%) (Auto ) 1.0, Sodium Level 144, Potassium Level 4.0, Chloride Level 106, Carbon Dioxide Level 27, Anion Gap 11, Blood Urea Nitrogen 12, Creatinine 0.8, Estimat Glomerular Filtration Rate > 60, Glucose Level 124H, Calcium Level 9.3 Height (Feet): 5 Height (Inches): 3.00 Weight (Pounds): 158 General Appearance: lethargic EENT: normal ENT inspection Neck: normal alignment Cardiovascular: normal peripheral pulses, normal rate, regular rhythm Respiratory/Chest: chest wall non-tender, lungs clear, normal breath sounds Abdomen: normal bowel sounds, non tender, soft Extremities: normal inspection Edema: no edema noted Arm (L), no edema noted Arm (R), no edema noted Leg (L), no edema noted Leg (R), no edema noted Pedal (L), no edema noted Pedal (R), no edema noted Generalized Neurologic: motor weakness Skin: normal pigmentation, warm/dry Dariusz Knox DO Dec 15, 2019 11:53
[2019-12-15 12:00] VITALS: BP 139/68
--- NOTE | 2019-12-15 12:53 | NUR ---
CASE MANAGEMENT: INITIAL REVIEW 59YR OLD MALE BIBA FROM HOME CC: CHEST PAIN SI:CHEST PAIN . UNCONTROLLED HTN 98.0 69 18 203/92 99% ON RA H/H 17.2/50.7 BG 134 C-REC PROTEIN 226 LIPASE 34 IS:NITRO-BID TP X1 ANTIVERT PO X1 CATAPRES PO X1 CHEST X-RAY -Some prominence of the pulmonary interstitial \: 2E TELE UNIT CASE MANAGEMENT: REVIEW 12/13/19 SI:CHEST PAIN . UNCONTROLLED HTN 98.3 44 17 76/41 98/% ON 2L NC TRIG 370 CHOL 217 LDL 120 HDL 35 IS:IVF NS @125ML/HR NORVASC PO QD CATAPRES PO TID PROTONIX PO QD NEURONTIN PO TID SEROQUEL PO QHS \: 2E TELE UNIT CASE MANAGEMENT: REVIEW 12/14/19 SI:CHEST PAIN . UNCONTROLLED HTN 97.7 72 20 141/94 96% ON RA NA+ 146 BNP 564 IS:IVF NS @125ML/HR NORVASC PO QD CATAPRES PO TID PROTONIX PO QD NEURONTIN PO TID SEROQUEL PO QHS \: 2E TELE UNIT PLAN: POSS DC IN AM
[2019-12-15] MEDS ORDERED: NS 275ml ONE (13:44)
--- NOTE | 2019-12-16 00:28 | Initial Psychiatric Evaluation ---
Psychiatry Consultation Psychiatry Consultation Reason for Consultation: 12/14/19 Chief Complaint: Chest Pain History of Present Illness: 59-year-old female, who presented with above-mentioned diagnoses, admitted to telemetry for further care. the pt has hx of bipolar and opioid dependence. the pt was anxious and depressed no si/hi. the pt was seen in icu and the daughter was at bedside. Allergies: Coded Allergies: CIPROFLOXACIN (Verified Allergy, Unknown, 12/12/19) KETOROLAC (Verified Allergy, Unknown, 12/12/19) NSAIDS (NON-STEROIDAL ANTI-INFLAMMA (Verified Allergy, Unknown, 12/12/19) Medication History Scheduled Buprenorphine Hcl/Naloxone Hcl (Suboxone 8 Mg-2 Mg Tablet Sl*), 1 TAB SL DAILY, (Reported) Clonidine HCl (Clonidine HCl), 0.2 MG PO THREE TIMES A DAY, (Reported) Duloxetine Hcl* (Cymbalta*), Unknown Dose ORAL DAILY, (Reported) Gabapentin* (Gabapentin*), 600 MG ORAL THREE TIMES A DAY, (Reported) Patient History History Provided By: Patient, Medical Record Objective Data Height (Feet): 5 Height (Inches): 3.00 Weight (Pounds): 158 Appearance: no abnormalities noted Behavior Mannerisms: good eye contact Affect: constricted Mood: depressed, anxious Thought Process: no abnormalities Suicidal Ideation: not present Assessment/Plan Diagnosis [place] I: bipolar do ro border [place] personality opioid dependence cont current meds the pt was reluctant to change meds Alexx Moya MD Dec 16, 2019 00:28
--- NOTE | 2019-12-16 03:00 | Progress Note ---
DATE: 12/15/2019 SUBJECTIVE: The patient is now, anxious, very restless, behavior. to be discharged. The patient is reluctant to change medication. She would like to take the medication she takes outside of the hospital. She is on Seroquel and lorazepam. She is not endorsing any suicidal or homicidal ideation. MENTAL STATUS EXAMINATION: Alert and oriented times self, place, and situation. Mood is anxious. Affect is constricted, congruent with mood. Thought process is linear and goal oriented. Thought content, no suicidal or homicidal ideation. ASSESSMENT: Bipolar disorder. PLAN: 1. We will continue current medications. 2. Provide the patient with reality orientation and supportive therapy. Alexx Moya M.D. DR: GLORIA JOB#: [id number] CC:
--- NOTE | 2019-12-17 13:33 | Discharge Summary ---
Discharge Summary Discharge Summary _ DATE OF ADMISSION: 12/12/2019 DATE OF DISCHARGE: 12/15/2019 DISCHARGED BY: Dr. Dariusz Knox CONSULTANTS: Dr. Alexx Mackey [facility] HOSPITAL COURSE: Patient is a 59-year-old female who presented to ED due to chest pain and hypertension. Patient had increased pain to the left side of the chest radiating to the back. She has history of hypertension for which she takes clonidine. Denies any vomiting or diarrhea. She has prior history of noted damage as well as anxiety. She had increased dizziness. She was brought in by EMS and was given aspirin prior to arrival. Upon evaluation at ED, blood pressure was elevated to 203/92. Pulse rate 69. EKG showed sinus rhythm without acute ST or T wave changes. Blood work did not show any leukocytosis. Hemoglobin 17 and hematocrit 51. D-dimer was negative. Troponin was negative. Urine toxicology screen negative. She was noted to have agitation and was given Ativan. She has chronic low back pain for which she takes gabapentin but is out of medication. She was then admitted for evaluation of uncontrolled hypertension and chest pain. She was admitted to telemetry. She underwent cardiac evaluation. Patient ran out of her medications for blood pressure a week ago. She also ran out of gabapentin. She has had low back pain for several years nothing relieves or exacerbates the pain. She denied any PND or orthopnea. She uses multiple pillows because of GERD. She has no palpitations. Cardiac enzymes were monitored. Patient had poor blood pressure control despite taking clonidine. Norvasc was added to her regimen. Pain management was consulted. Patient was taking Suboxone as outpatient but medication is nonformulary at the hospital. She was then given morphine and [place] for pain control. She was given muscle relaxants for muscle spasms. Blood pressure dropped to 80s systolic. Blood pressure did not improve with fluid challenge. Patient was taken to ICU. She was ordered to be started on Levophed drip, however did not have any central line. ER physician was unable to insert due to agitation. Blood pressure eventually improved without need for IV pressor. She underwent psychiatric evaluation. Patient has history of bipolar and opioid dependence. Patient was anxious and depressed. She denied any suicidal intent or ideation. Patient was reluctant to make changes on her psychiatric medications. Patient is on Seroquel and lorazepam. Patient enzymes were normal. BNP normal. Patient refused to take CTA. Blood pressure with better control on clonidine 0.2 mg every 8 hours and Norvasc 5 mg daily. She was eventually cleared for discharge home. FINAL DIAGNOSES: Hypertensive urgency Bipolar disorder Opioid dependence Anxiety and depression Lumbar degenerative disc disease Lumbar spondylosis Episode of hypotension, likely medication induced Personality disorder DISPOSITION: Patient was discharged home. DISCHARGE INSTRUCTIONS: Follow-up in a week. I have been assigned to complete a discharge summary on this account, I was not involved with the patient's management.--AMOS Stewart Jacqueline Robles NP Dec 17, 2019 13:33
--- NOTE | 2019-12-18 16:00 | NUR ---
*-* INSURANCE *-* ALL AVAILABLE CLINICALS HAVE BEEN FAXED TO: MELISSA Roberts CM: Yeimy Leon Clinicals: [phone] Addendum: 12/18/19 at 1601 by RAFAEL COCHRAN CM DISCHARGE SUMMARY HAS BEEN FAXED
== END 2019-12-15 13:45 | disposition home or self-care (01) | DRG 199 ==
LOC: EDBD 03:29 → EMR 04:12 → 2E 06:13 → EDBEDREQ 10:19 → 2E 21:27 → ICU 22:58 → 2W 12-14 01:52 → 2E 12-14 17:30
DX: I16.0 Hypertensive urgency (principal); F11.20 Opioid dependence, uncomplicated; F60.4 Histrionic personality disorder; I95.2 Hypotension due to drugs; M51.36 Other intervertebral disc degeneration, lumbar region; F31.9 Bipolar disorder, unspecified; F41.8 Other specified anxiety disorders; M47.896 Other spondylosis, lumbar region; Z88.6 Allergy status to analgesic agent; F17.200 Nicotine dependence, unspecified, uncomplicated; G89.29 Other chronic pain; M54.5 Low back pain
CPT/HCPCS: 36415; 71045; 80048; 80053; 80061; 80307; 81003; 83690; 83880; 84443; 84484; 85025; 85379; 85610; 85730; 86140; 93005; 93306; 94664; 96374; 99285; G0480; J2405; J7030

== ENCOUNTER 2019-12-17 23:05 | Emergency (ER) | payer OTHER ==
[~2019-12-17] VITALS: Ht 162.6 cm; Wt 68.0 kg
[~2019-12-17 23:05] MED LIST: CLONIDINE 0.2M0.2 MG PO; CYMBALTA60 MG ORAL; GABAPENTIN600 MG ORAL; SUBOXONE 8 MG-1 EAC2 SL
[2019-12-17] MEDS ORDERED: QUETIAPINE FUM200 MG ORAL (23:13)
[2019-12-17 23:15] VITALS: BP 127/58
--- NOTE | 2019-12-17 23:15 | NUR ---
ED Nurse Note: Patient walked in from home d/t thorbbing chest pain x 1 day radiating to right jaw. Patient aao x 4 and ambulatory. Patient stated she has been seen by group contract analyst in her last hospital visit. Patient placed on monitor and changed into gown. No acute distress noted upon assessment.
[2019-12-17] MEDS ORDERED: Aspirin Baby 81mg ORAL ONE (23:30)
--- NOTE | 2019-12-17 23:42 | Emergency Room Report ---
History of Present Illness General Chief Complaint: Chest Pain Source: Patient, Medical Record Present Illness HPI This is a 59-year-old female with history of high blood pressure. She also has history of chronic pain for which she takes Suboxone. She presents with chief complaint of chest pain. This been ongoing for 2 days. Chest pain is to the mid chest going to the right side. Denies she has some jaw pain. She was just admitted here last week for the same thing. She was ruled out. Patient did say that she is back on her blood pressure medication. Initially she told me that she did not take any pain medication but I brought up the fact that she is supposed to be on Suboxone and she says she did take it this morning. She took Tylenol for her pain here. Denies any fever chills but denies any diaphoresis. No exertional component. No nausea no vomiting. Pain is 7 out of 10. Allergies: Coded Allergies: CIPROFLOXACIN (Verified Allergy, Unknown, 12/12/19) KETOROLAC (Verified Allergy, Unknown, 12/12/19) NSAIDS (NON-STEROIDAL ANTI-INFLAMMA (Verified Allergy, Unknown, 12/12/19) Patient History Past Medical History: see triage record, old chart reviewed, HTN Past Surgical History: other Pertinent Family History: none Social History: Reports: smoking Now: No Immunizations: other Reviewed Nursing Documentation: PMH: Agreed; PSxH: Agreed Nursing Documentation-PMH Past Medical History: No History, Except For Hx Cardiac Problems: Yes Hx Hypertension: Yes Hx Cancer: No Hx Gastrointestinal Problems: No Hx Neurological Problems: No Review of Systems Eye: Denies: eye pain, blurred vision ENT: Denies: ear pain, nose congestion, throat swelling Respiratory: Denies: cough, shortness of breath Cardiovascular: Reports: chest pain; Denies: palpitations Gastrointestinal: Denies: abdominal pain, diarrhea, nausea, vomiting Musculoskeletal: Denies: back pain, joint pain Skin: Denies: rash Neurological: Denies: headache, numbness Endocrine: Denies: increased thirst, increased urine Hematologic/Lymphatic: Denies: easy bruising All Other Systems: negative except mentioned in HPI Physical Exam Vital Signs Date Time Temp Pulse Resp B/P (MAP) Pulse Ox O2 Delivery O2 Flow Rate FiO2 12/17/19 23:08 97.7 78 12 90/58 (69) 94 Room Air Vitals unremarkable. Repeat blood pressure 105/55 Sp02 EP Interpretation: reviewed, normal General Appearance: well appearing, no apparent distress, alert Head: normocephalic, atraumatic Eyes: bilateral eye PERRL, bilateral eye EOMI ENT: hearing grossly normal, normal pharynx Neck: full range of motion, supple, no meningismus Respiratory: chest non-tender, lungs clear, normal breath sounds Cardiovascular #1: regular rate, rhythm, no murmur Gastrointestinal: normal bowel sounds, non tender, no mass, no organomegaly, no bruit, non-distended Musculoskeletal: back normal, normal range of motion, gait/station normal Psychiatric: anxious Medical Decision Making Diagnostic Impression: Primary Impression: Chest pain Qualified Codes: R07.9 - Chest pain, unspecified ER Course This a 59-year-old female who presents with atypical pain. Her pain been persistent for 2 days. Her EKG is normal. Her troponin is negative. I see no evidence of ACS, PE, dissection this patient. Patient was anxious but after reassurance felt much better. Will discharge home. EKG Diagnostic Results Rate: normal Rhythm: NSR ST Segments: no acute changes ASA given to the pt in ED: Yes Rhythm Strip Diag. Results EP Interpretation: yes Rate: 55 Rhythm: NSR, no PVC's, no ectopy Last Vital Signs Date Time Temp Pulse Resp B/P (MAP) Pulse Ox O2 Delivery O2 Flow Rate FiO2 12/17/19 23:08 97.7 78 12 90/58 (69) 94 Room Air Status: improved Disposition: HOME, SELF-CARE Condition: Stable Referrals: JANNIE DUMONT,REFERRING (PCP) Patient Instructions: Nonspecific Chest Pain Additional Instructions: Cut down on your clonidine to 0.1 mg 3 times a day. Follow-up with your doctor in 7 days. You may need to be on a different blood pressure medication. Return if symptoms worsen. Roscoe Haq MD Dec 17, 2019 23:41
--- NOTE | 2019-12-18 01:13 | NUR ---
ED Nurse Note: ERMD at bedside.
[2019-12-18 01:28] VITALS: BP 98/58
--- NOTE | 2019-12-18 01:28 | NUR ---
ER DISCHARGE NOTE: Patient is cleared to be discharged per ERMD, pt is aox4, on room air, with stable vital signs. pt was given dc instructions, pt was able to verbalize understanding, pt id band and iv site removed without complications. pt is able to ambulate with steady gait. pt took all belongings. pt stable upon discharge.
== END 2019-12-18 01:32 | disposition home or self-care (01) ==
LOC: EMR 23:22
DX: R07.9 Chest pain, unspecified (principal); I10 Essential (primary) hypertension; Z88.6 Allergy status to analgesic agent; Z87.891 Personal history of nicotine dependence
CPT/HCPCS: 84484; 93005; Z7502; 99283

== ENCOUNTER 2020-01-22 22:10 | Emergency (ER) | payer BC, OTHER ==
[~2020-01-22] VITALS: Ht 162.6 cm; Wt 68.0 kg
[~2020-01-22 22:10] MED LIST changes: +QUETIAPINE FUM200 MG ORAL
[2020-01-22] MEDS ORDERED: Metoclopramide 10mg/2ml Inj IVP ONE (22:45)
[2020-01-22] MEDS ORDERED: Acetaminophen 500mg (ES) tab ORAL ONE (22:45)
[2020-01-22] MEDS ORDERED: Albuterol/Ipratropium 3ml neb HHN ONE (23:00)
[2020-01-22 23:04] LABS: ANION GAP 10 mmol/L (5-15); BLOOD UREA NITROGEN 18 mg/dL (7-18); CALCIUM 9.9 MG/DL (8.5-10.1); CARBON DIOXIDE 29 MMOL/L (21-32); CHLORIDE 97 MMOL/L (98-107); POTASSIUM 3.8 MMOL/L (3.5-5.1); SODIUM 136 MMOL/L (136-145)
[2020-01-22 23:15] LABS: ALANINE AMINOTRANSFERASE 22 U/L (12-78); ALBUMIN 2.8 G/DL (3.4-5.0); ALBUMIN/GLOBULIN RATIO 0.6 (1.0-2.7); ALKALINE PHOSPHATASE 55 U/L (46-116); ASPARTATE AMINO TRANSFERASE 10 U/L (15-37); BILIRUBIN,TOTAL 0.3 MG/DL (0.2-1.0)
[2020-01-22 23:16] LABS: BASOPHILS % (AUTO) 1.3 % (0.0-2.0); EOSINOPHILS % (AUTO) 1.5 % (0.0-3.0); HEMATOCRIT 43.3 % (37.0-47.0); HEMOGLOBIN 15.7 G/DL (12.0-16.0); LYMPHOCYTES % (AUTO) 23.1 % (20.0-45.0); MEAN CORPUSCULAR VOLUME 85 FL (80-99); MONOCYTES % (AUTO) 5.4 % (1.0-10.0); NEUTROPHILS % (AUTO) 68.6 % (45.0-75.0); PLATELET COUNT 274 K/UL (150-450); RED CELL DISTRIBUTION WIDTH 13.4 % (11.6-14.8)
--- NOTE | 2020-01-22 23:20 | Diagnostic Imaging Report ---
Indication: Shortness of breath Technique: One view of the chest Comparison: 12/12/2019 Findings: Hazy parenchymal opacities are seen at both lung bases. There is mild interstitial prominence which appears slightly increased from the prior study. The heart size is normal. The pleural spaces are grossly clear. Impression: Apparent hazy bilateral basilar parenchymal opacities, could be an artifact of overlying soft tissue but hazy infiltrates also possible Nonspecific mild interstitial prominence, slightly increased from the prior study This agrees with the preliminary interpretation provided overnight by [facility].
--- NOTE | 2020-01-22 23:58 | Emergency Room Report ---
History of Present Illness General Chief Complaint: Dyspnea/Respdistress Source: Patient Present Illness HPI 59-year-old female presents the ED for evaluation. Brought in by EMS from Street. Complaining of dizziness and headache. States she feels short of breath. Symptoms started today. History of COPD. Denies cough. Denies fevers or chills. Denies chest pain. States that she was discharged from [facility] 1 week ago. Was admitted for COPD exacerbation. Was tested twice for coronavirus and was negative. No other aggravating relieving factors. Denies any other associated symptoms Allergies: Coded Allergies: CIPROFLOXACIN (Verified Allergy, Unknown, 12/12/19) KETOROLAC (Verified Allergy, Unknown, 12/12/19) NSAIDS (NON-STEROIDAL ANTI-INFLAMMA (Verified Allergy, Unknown, 12/12/19) COVID-19 Screening Contact w/high risk pt: No Recent Travel to affected area: No Experienced COVID-19 symptoms?: Yes COVID-19 symptoms experienced: Shortness of Breath Patient History Past Medical History: HTN, COPD Past Surgical History: none Pertinent Family History: none Social History: Denies: smoking, alcohol use, drug use Now: No Immunizations: UTD Reviewed Nursing Documentation: PMH: Agreed; PSxH: Agreed Nursing Documentation-PMH Past Medical History: No Stated History Hx Cardiac Problems: Yes Hx Hypertension: Yes Hx COPD: Yes Hx Cancer: No Hx Gastrointestinal Problems: No Hx Neurological Problems: No Review of Systems All Other Systems: negative except mentioned in HPI Physical Exam Vital Signs Date Time Temp Pulse Resp B/P (MAP) Pulse Ox O2 Delivery O2 Flow Rate FiO2 01/22/20 22:12 98.4 149 19 132/101 (111) 95 01/22/20 23:13 Room Air 21 Sp02 EP Interpretation: reviewed, normal General Appearance: no apparent distress, alert, GCS 15, non-toxic Head: normocephalic, atraumatic Eyes: bilateral eye normal inspection, bilateral eye PERRL ENT: hearing grossly normal, normal pharynx, no angioedema, normal voice Neck: full range of motion, supple/symm/no masses Respiratory: chest non-tender, decreased breath sounds, speaking full sentences , wheezing Cardiovascular #1: regular rate, rhythm, no edema Cardiovascular #2: 2+ carotid (R), 2+ carotid (L), 2+ radial (R), 2+ radial (L) , 2+ dorsalis pedis (R), 2+ dorsalis pedis (L) Gastrointestinal: normal bowel sounds, non tender, soft, non-distended, no guarding, no rebound Rectal: deferred Genitourinary: normal inspection, no CVA tenderness Musculoskeletal: back normal, normal range of motion, gait/station normal, non- tender Neurologic: alert, motor strength/tone normal, oriented x3, sensory intact, responsive, speech normal Psychiatric: judgement/insight normal, memory normal, mood/affect normal, no suicidal/homicidal ideation Reflexes: 3+ bicep (R), 3+ bicep (L), 3+ tricep (R), 3+ tricep (L), 3+ knee (R) , 3+ knee (L) Lymphatic: no adenopathy Procedures Critical Care Time Critical Care Time i. I feel this is a highly complex case requiring extensive working including EKG/Rhythm strip, Xray/CT/US, Blood/urine lab work, repeat exams while in ED, and administration of strong opiates/narcotics for pain control, admission to hospital or close patient follow up. Total time: 45 min bedside evaluation and treatment excludes procedures (EKG). Reason for critical care: dizziness, hypoxia, hypotension Possible complications: hypotension, hypertension, CO, shock, arrhythmias, metabolic acidosis, end organ damage, respiratory failure. Interventions: labs, EKG, CXR, IVFs, nebs, cardiac monitoring Course: Patient presenting with dizziness, shortness of breath. Hypotensive on monitor. Hypoxic. Given IV fluids. Given breathing treatments. Labs reviewed. On reassessment symptoms improved. BP improved. Tachycardia resolved. O2 sats improved. Consultations: nursing staff, EMS, family Performed by: Dr Kaur Tolerated well condition = serious j. because of unstable vital signs this patient had a condition that could potentially threaten life or limb. I feel this is a critical patient who required my full attention while patient was considered critical. Total Critical Care Time excluding procedures was greater than 45 minutes Medical Decision Making Diagnostic Impression: Primary Impression: COPD (chronic obstructive pulmonary disease) Qualified Codes: J44.9 - Chronic obstructive pulmonary disease, unspecified ER Course Hospital Course 59-year-old female presents with dizziness, shortness of breath Differential diagnoses include: URI, bronchitis, asthma/COPD, pneumonia Clinical course Patient placed on stretcher. On case monitor with hypoxia and hypotension. After initial history, physical exam reveals a female in no acute distress. Bilateral TM unremarkable. No pharyngeal erythema. No tonsillar exudates. No lymphadenopathy. mild wheezing, reduced breath sounds I ordered labs, IV fluids, EKG, nebs, chest x-ray. Labs reviewed-leukocytosis noted, hemoglobin/hematocrit stable, electrolytes okay EKG - sinus tachycardia no acute ischemci changes intererpeted by me Chest x-ray shows no consolidation or infiltrate On reassessment patient feels better. Breathing improved. O2 sats improved. BP improved. I discussed findings with patient. Labs unremarkable. Patient states on recent hospitalization she was tested twice for coronavirus and tested negative. States she has been isolating since then. Patient states she would prefer to be discharged at this time. I agree with her assessment. Safe for discharge with close outpatient follow-up. I will provide referrals Diagnosis - COPD Stable and discharged home with prescriptions for albuterol, tylenol, perdnisone , zpack. Instructed to followup with PMD. Return to ED if symptoms recur or worsen Labs Test 01/22/20 22:23 White Blood Count 12.0 K/UL (4.8-10.8) Red Blood Count 5.10 M/UL (4.20-5.40) Hemoglobin 15.7 G/DL (12.0-16.0) Hematocrit 43.3 % (37.0-47.0) Mean Corpuscular Volume 85 FL (80-99) Mean Corpuscular Hemoglobin 30.7 PG (27.0-31.0) Mean Corpuscular Hemoglobin Concent 36.2 G/DL (32.0-36.0) Red Cell Distribution Width 13.4 % (11.6-14.8) Platelet Count 274 K/UL (150-450) Mean Platelet Volume 6.3 FL (6.5-10.1) Neutrophils (%) (Auto) 68.6 % (45.0-75.0) Lymphocytes (%) (Auto) 23.1 % (20.0-45.0) Monocytes (%) (Auto) 5.4 % (1.0-10.0) Eosinophils (%) (Auto) 1.5 % (0.0-3.0) Basophils (%) (Auto) 1.3 % (0.0-2.0) Sodium Level 136 MMOL/L (136-145) Potassium Level 3.8 MMOL/L (3.5-5.1) Chloride Level 97 MMOL/L (98-107) Carbon Dioxide Level 29 MMOL/L (21-32) Anion Gap 10 mmol/L (5-15) Blood Urea Nitrogen 18 mg/dL (7-18) Creatinine 1.0 MG/DL (0.55-1.30) Estimat Glomerular Filtration Rate 57.1 mL/min (>60) Glucose Level 216 MG/DL (74-106) Calcium Level 9.9 MG/DL (8.5-10.1) Total Bilirubin 0.3 MG/DL (0.2-1.0) Aspartate Amino Transf (AST/SGOT) 10 U/L (15-37) Alanine Aminotransferase (ALT/SGPT) 22 U/L (12-78) Alkaline Phosphatase 55 U/L (46-116) Troponin I 0.002 ng/mL (0.000-0.056) Pro-B-Type Natriuretic Peptide 97 pg/mL (0-125) Total Protein 7.2 G/DL (6.4-8.2) Albumin 2.8 G/DL (3.4-5.0) Globulin 4.4 g/dL Albumin/Globulin Ratio 0.6 (1.0-2.7) EKG Diagnostic Results Rate: tachycardiac Rhythm: NSR ST Segments: no acute changes ASA given to the pt in ED: No Rhythm Strip Diag. Results EP Interpretation: yes Rhythm: NSR, no PVC's, no ectopy Chest X-Ray Diagnostic Results Chest X-Ray Diagnostic Results : Chest X-Ray Ordered: Yes # of Views/Limited/Complete: 1 View Indication: Shortness of Breath EP Interpretation: Yes Interpretation: no consolidation, no effusion, no pneumothorax, no acute cardiopulmonary disease Impression: No acute disease Electronically Signed by: Electronically signed by Ronald Kaur MD Last Vital Signs Date Time Temp Pulse Resp B/P (MAP) Pulse Ox O2 Delivery O2 Flow Rate FiO2 01/22/20 23:19 98.5 01/22/20 23:13 106 20 96 Room Air 21 104 20 89 01/22/20 22:12 132/101 (111) Status: improved Disposition: HOME, SELF-CARE Condition: Stable Scripts Albuterol Sulfate* (PROAIR HFA*) 8.5 Gm Hfa.aer.ad 2 PUFFS INH Q6H, #8.5 GM 0 Refills Prov: Ronald Kaur MD 01/23/20 Acetaminophen* (TYLENOL EXTRA STRENGTH*) 500 Mg Tablet 500 MG ORAL Q8H PRN for Prn Headache/Temp > 101, #30 TAB 0 Refills Prov: Ronald Kaur MD 01/23/20 Prednisone* (PREDNISONE*) 20 Mg Tablet 40 MG ORAL DAILY, #10 TAB Prov: Ronald Kaur MD 01/23/20 Azithromycin* (ZITHROMAX*) 250 Mg Tablet 250 MG ORAL DAILY, #6 TAB 0 Refills Take two tables once daily for 1 day, then one tablet once daily for 4 days. Prov: Ronald Kaur MD 01/23/20 Referrals: NOT CHOSEN [facility]/,REFERRING (PCP) Ronald Kaur MD Jan 22, 2020 23:58
[2020-01-23] MEDS ORDERED: PROAIR HFA8.5 GM INH (00:55)
[2020-01-23] MEDS ORDERED: ZITHROMAX250 MG ORAL (00:55)
[2020-01-23] MEDS ORDERED: PREDNISONE20 MG ORAL (00:55)
[2020-01-23] MEDS ORDERED: TYLENOL EXTRA500 MG ORAL (00:55)
[2020-01-23 01:00] VITALS: BP 132/91
[2020-01-23 01:05] VITALS: BP 132/91
--- NOTE | 2020-01-23 01:05 | NUR ---
ER DISCHARGE NOTE: Patient is cleared to be discharged per ERMD, pt is aox4, on room air, with stable vital signs. pt was given dc and prescription instructions, pt was able to verbalize understanding, pt id band and iv site removed without complications. pt is able to ambulate with steady gait. pt took all belongings.
== END 2020-01-23 01:05 | disposition home or self-care (01) ==
LOC: EDBD 22:10 → EMR 22:45
DX: J44.9 Chronic obstructive pulmonary disease, unspecified (principal); R06.02 Shortness of breath; I10 Essential (primary) hypertension; Z88.8 Allergy status to other drugs, medicaments and biological substances; Z88.6 Allergy status to analgesic agent; R09.02 Hypoxemia; R00.0 Tachycardia, unspecified; D72.829 Elevated white blood cell count, unspecified
CPT/HCPCS: 36415; 71045; 80053; 83880; 84484; 85025; 96361; 96374; 99291; J2765; J7030; J7620